=== PATIENT | male | born 1940 | race Caucasian/White ===

== ENCOUNTER 2020-09-03 08:33 | Outpatient (REF) | payer MEDICARE, SELFPAY ==
[2020-09-03 10:23] LABS: MANUAL DIFF FLAG NO
[2020-09-03 10:28] LABS: Basophils Percent Auto 0.7 % (0-2); Eosinophils Absolute Auto 0.1 X10*3/uL (0.0-0.4); Eosinophils Percent Auto 3.3 % (0-4); Hematocrit 43.3 % (42-52); Hemoglobin 14.2 g/dl (14.0-18.0); Imm Gran Abs Auto 0.01 X10*3/uL (0.00-0.03); Imm Gran Pct Auto 0.2 % (0.0-0.4); Lymphocytes Absolute Auto 1.1 X10*3/uL (1.2-4.9); Lymphocytes Percent Auto 24.8 % (20-40); Mean Corpuscular HGB Conc 32.8 g/dl (31.0-36.0); Mean Corpuscular Hemoglobin 31.2 pg (27.0-33.0); Mean Corpuscular Volume 95.2 fL (80-98); Mean Platelet Volume 12.6 fL (9.4-12.4); Monocytes Absolute Auto 0.5 X10*3/uL (0.1-1.2); Neutrophils Absolute Auto 2.6 X10*3/uL (2.0-8.3); Platelet Count 115 X10*3/uL (160-400); Red Blood Count 4.55 X10*6/uL (4.60-5.80); Red Cell Distribution Width 13.2 % (11.0-16.0); White Blood Count 4.3 X10*3/uL (4.8-10.8)
[2020-09-03 10:58] LABS: Alanine Aminotransferase 14 U/L (0-40); Albumin Level 4.3 g/dL (3.5-5.0); Alkaline Phosphatase 69 U/L (39-117); Anion Gap 12 (12-20); Aspartate Amino Transferase 17 U/L (5-37); Bilirubin Total 1.1 mg/dL (0.0-1.0); Blood Urea Nitrogen 21 mg/dL (9-16); Calcium 9.3 mg/dL (8.4-10.2); Carbon Dioxide 27 mmol/L (22-29); Chloride 107 mmol/L (96-108); Cholesterol 162 mg/dL; Estimated Glomerular Filt Rate 48; Glucose Fasting 96 mg/dL (60-99); HDL Cholesterol 50 mg/dL; LDL Cholesterol Calculated 99 mg/dl; Potassium 4.3 mmol/L (3.3-5.1); Sodium 142 mmol/L (135-145); Total Protein 6.7 g/dL (6.5-8.0); Triglycerides 67 mg/dL
[2020-09-03 11:06] LABS: Prostate Specific Antigen 1.88 ng/mL (<0.05-4.0)
== END 2020-09-03 08:34 | disposition home or self-care (01) ==
LOC: HO.10HDL 08:33
PROVIDERS: Visit Provider Internal Medicine
DX: N40.0 Benign prostatic hyperplasia without lower urinary tract symptoms (principal); I10 Essential (primary) hypertension; E78.00 Pure hypercholesterolemia, unspecified; Z12.5 Encounter for screening for malignant neoplasm of prostate
CPT/HCPCS: 36415; 80053; 80061; 84153; 85025

== ENCOUNTER 2022-03-08 07:56 | Outpatient (REF) | payer MEDICARE, SELFPAY ==
[2022-03-08 10:37] LABS: MANUAL DIFF FLAG NO
[2022-03-08 10:46] LABS: Basophils Percent Auto 0.9 % (0-2); Eosinophils Absolute Auto 0.1 X10*3/uL (0.0-0.4); Eosinophils Percent Auto 2.6 % (0-4); Hematocrit 40.2 % (42.0-52.0); Hemoglobin 13.1 g/dl (14.0-18.0); Imm Gran Abs Auto 0.03 X10*3/uL (0.00-0.03); Imm Gran Pct Auto 0.7 % (0.0-0.4); Lymphocytes Absolute Auto 0.9 X10*3/uL (1.2-4.9); Lymphocytes Percent Auto 19.6 % (20-40); Mean Corpuscular HGB Conc 32.6 g/dl (31.0-36.0); Mean Corpuscular Hemoglobin 31.5 pg (27.0-33.0); Mean Corpuscular Volume 96.6 fL (80.0-98.0); Mean Platelet Volume 12.2 fL (9.4-12.4); Monocytes Absolute Auto 0.5 X10*3/uL (0.1-1.2); Monocytes Percent Auto 11.8 % (2-11); Neutrophils Percent Auto 64.4 % (45-73); Platelet Count 111 X10*3/uL (160-400); Red Blood Count 4.16 X10*6/uL (4.60-5.80); White Blood Count 4.6 X10*3/uL (4.8-10.8)
[2022-03-08 11:22] LABS: Alanine Aminotransferase 14 U/L (0-40); Albumin Level 3.9 g/dL (3.5-5.0); Alkaline Phosphatase 66 U/L (39-117); Anion Gap 13 (12-20); Aspartate Amino Transferase 16 U/L (5-37); Bilirubin Total 0.7 mg/dL (0.0-1.0); Blood Urea Nitrogen 18 mg/dL (9-16); Calcium 9.3 mg/dL (8.4-10.2); Carbon Dioxide 27 mmol/L (22-29); Chloride 105 mmol/L (96-108); Cholesterol 158 mg/dL; Estimated Glomerular Filt Rate 51; Glucose Fasting 102 mg/dL (60-99); HDL Cholesterol 52 mg/dL; LDL Cholesterol Calculated 90 mg/dl; Sodium 141 mmol/L (135-145); Total Protein 6.2 g/dL (6.5-8.0); Triglycerides 81 mg/dL
[2022-03-08 11:45] LABS: Prostate Specific Antigen Scr 1.59 ng/mL (<0.05-4.0)
== END 2022-03-08 07:57 | disposition home or self-care (01) ==
LOC: HO.10HDL 07:56
PROVIDERS: Visit Provider Internal Medicine
DX: Z12.5 Encounter for screening for malignant neoplasm of prostate (principal); I10 Essential (primary) hypertension; N40.0 Benign prostatic hyperplasia without lower urinary tract symptoms; E78.00 Pure hypercholesterolemia, unspecified; D69.6 Thrombocytopenia, unspecified
CPT/HCPCS: 36415; 80053; 80061; 84153; 85025

== ENCOUNTER 2022-08-06 14:44 | Outpatient (REF) | payer MEDICARE, SELFPAY ==
--- NOTE | ~2022-08-06 | XR_ITS ---
EXAMINATION: XR FOOT, LEFT CLINICAL INFORMATION: Pain COMPARISON: None available. TECHNIQUE: 3 views of the left foot. FINDINGS: Degenerative changes most noted in the first MTP joint. There is no acute fracture or dislocation. XR/XR foot LT 2V IMPRESSION: Degenerative changes. No acute fracture or dislocation left foot.
== END 2022-08-06 14:45 | disposition home or self-care (01) ==
LOC: HO.HMGCX 14:44
PROVIDERS: PCP Internal Medicine; Visit Provider Physician Assistant
DX: M79.672 Pain in left foot (principal)
CPT/HCPCS: 73620

== ENCOUNTER 2023-02-24 07:44 | Outpatient (REF) | payer MEDICARE, SELFPAY ==
[2023-02-24 11:22] LABS: MANUAL DIFF FLAG NO
[2023-02-24 11:29] LABS: Basophils Percent Auto 0.9 % (0-2); Eosinophils Absolute Auto 0.2 X10*3/uL (0.0-0.4); Eosinophils Percent Auto 4.7 % (0-4); Hematocrit 42.5 % (42.0-52.0); Hemoglobin 13.9 g/dl (14.0-18.0); Imm Gran Abs Auto 0.02 X10*3/uL (0.00-0.03); Imm Gran Pct Auto 0.4 % (0.0-0.4); Lymphocytes Absolute Auto 1.1 X10*3/uL (1.2-4.9); Lymphocytes Percent Auto 23.8 % (20-40); Mean Corpuscular HGB Conc 32.7 g/dl (31.0-36.0); Mean Corpuscular Hemoglobin 31.6 pg (27.0-33.0); Mean Corpuscular Volume 96.6 fL (80.0-98.0); Mean Platelet Volume 12.7 fL (9.4-12.4); Monocytes Absolute Auto 0.6 X10*3/uL (0.1-1.2); Monocytes Percent Auto 12.6 % (2-11); Neutrophils Absolute Auto 2.7 x10*3/uL (2.0-8.3); Neutrophils Percent Auto 57.6 % (45-73); Platelet Count 112 X10*3/uL (160-400); Red Cell Distribution Width 13.2 % (11.0-16.0); White Blood Count 4.7 X10*3/uL (4.8-10.8)
[2023-02-24 11:40] LABS: Alanine Aminotransferase 12 U/L (0-40); Albumin Level 4.2 g/dL (3.5-5.0); Alkaline Phosphatase 81 U/L (39-117); Anion Gap 11 (12-20); Aspartate Amino Transferase 20 U/L (5-37); Bilirubin Total 0.4 mg/dL (0.0-1.0); Blood Urea Nitrogen 27 mg/dL (9-16); Calcium 9.3 mg/dL (8.4-10.2); Carbon Dioxide 26 mmol/L (22-29); Chloride 109 mmol/L (96-108); Cholesterol 160 mg/dL (<200); Estimated Glomerular Filt Rate 55; Glucose Fasting 107 mg/dL (60-99); HDL Cholesterol 49 mg/dL (>40); Iron 62 mcg/dL (45-160); LDL Cholesterol Calculated 95 mg/dL (<100); Percent Iron Saturation 27 % (15-50); Sodium 142 mmol/L (135-145); Total Iron Binding Capacity 233 mcg/dL (228-428); Total Protein 7.1 g/dL (6.5-8.0); Triglycerides 81 mg/dL (<150); Unsaturated Iron Binding 171 ug/dL
[2023-02-24 12:11] LABS: Prostate Specific Antigen 1.82 ng/mL (<0.05-4.0)
== END 2023-02-24 07:45 | disposition home or self-care (01) ==
LOC: HO.HMGCLDS 07:44
PROVIDERS: PCP Internal Medicine; Visit Provider Internal Medicine
DX: Z12.5 Encounter for screening for malignant neoplasm of prostate (principal); I10 Essential (primary) hypertension; E78.00 Pure hypercholesterolemia, unspecified; N40.0 Benign prostatic hyperplasia without lower urinary tract symptoms; K21.9 Gastro-esophageal reflux disease without esophagitis; D69.6 Thrombocytopenia, unspecified
CPT/HCPCS: 36415; 80053; 80061; 83540; 84153; 85025

== ENCOUNTER 2023-08-02 11:09 | Outpatient (REF) | payer MEDICARE, SELFPAY ==
[2023-08-02 13:26] LABS: MANUAL DIFF FLAG NO
[2023-08-02 13:57] LABS: Basophils Percent Auto 0.5 % (0-2); Eosinophils Absolute Auto 0.1 X10*3/uL (0.0-0.4); Eosinophils Percent Auto 1.5 % (0-4); Hematocrit 41.4 % (42.0-52.0); Hemoglobin 13.8 g/dl (14.0-18.0); Imm Gran Abs Auto 0.03 X10*3/uL (0.00-0.03); Imm Gran Pct Auto 0.5 % (0.0-0.4); Lymphocytes Percent Auto 18.6 % (20-40); Mean Corpuscular HGB Conc 33.3 g/dl (31.0-36.0); Mean Corpuscular Hemoglobin 31.4 pg (27.0-33.0); Mean Corpuscular Volume 94.1 fL (80.0-98.0); Mean Platelet Volume 12.6 fL (9.4-12.4); Monocytes Absolute Auto 0.4 X10*3/uL (0.1-1.2); Neutrophils Absolute Auto 3.9 x10*3/uL (2.0-8.3); Neutrophils Percent Auto 70.9 % (45-73); Platelet Count 110 X10*3/uL (160-400); Red Cell Distribution Width 13.1 % (11.0-16.0); White Blood Count 5.5 X10*3/uL (4.8-10.8)
[2023-08-02 14:30] LABS: Anion Gap 13 (12-20); Blood Urea Nitrogen 23 mg/dL (9-16); Carbon Dioxide 25 mmol/L (22-29); Chloride 109 mmol/L (96-108); Estimated Glomerular Filt Rate 49; Glucose Random 105 mg/dL (60-115); Potassium 4.4 mmol/L (3.3-5.1); Sodium 143 mmol/L (135-145)
== END 2023-08-02 11:10 | disposition home or self-care (01) ==
LOC: HO.10HDL 11:09
PROVIDERS: Visit Provider Internal Medicine
DX: D64.9 Anemia, unspecified (principal); I12.9 Hypertensive chronic kidney disease with stage 1 through stage 4 chronic kidney disease, or unspecified chronic kidney disease; N18.9 Chronic kidney disease, unspecified; N40.0 Benign prostatic hyperplasia without lower urinary tract symptoms
CPT/HCPCS: 36415; 80048; 85025

== ENCOUNTER 2024-03-11 07:09 | Outpatient (REF) | payer MEDICARE, SELFPAY ==
[2024-03-11 10:02] LABS: MANUAL DIFF FLAG NO
[2024-03-11 10:05] LABS: Appearance Urine Clear; Color Urine Yellow; Glucose Urine UA Negative (Negative); Leukocyte Esterase Urine Negative (Negative); Nitrite Urine Negative (Negative); PH 5.5 (5.0-9.0); Specific Gravity - Urine 1.015 (1.005-1.025); Urine Blood Negative (Negative); Urine Ketones Negative (Negative); Urine Protein Trace mg/dL (Neg-Trace)
[2024-03-11 10:27] LABS: Basophils Percent Auto 0.7 % (0-2); Eosinophils Absolute Auto 0.2 X10*3/uL (0.0-0.4); Eosinophils Percent Auto 4.7 % (0-4); Hematocrit 43.3 % (42.0-52.0); Hemoglobin 14.5 g/dl (14.0-18.0); Imm Gran Abs Auto 0.02 X10*3/uL (0.00-0.03); Imm Gran Pct Auto 0.4 % (0.0-0.4); Lymphocytes Absolute Auto 1.1 X10*3/uL (1.2-4.9); Lymphocytes Percent Auto 24.4 % (20-40); Mean Corpuscular HGB Conc 33.5 g/dl (31.0-36.0); Mean Corpuscular Hemoglobin 31.9 pg (27.0-33.0); Mean Corpuscular Volume 95.4 fL (80.0-98.0); Mean Platelet Volume 12.7 fL (9.4-12.4); Monocytes Absolute Auto 0.5 X10*3/uL (0.1-1.2); Monocytes Percent Auto 11.2 % (2-11); Neutrophils Absolute Auto 2.6 x10*3/uL (2.0-8.3); Neutrophils Percent Auto 58.6 % (45-73); Platelet Count 115 X10*3/uL (160-400); Red Blood Count 4.54 X10*6/uL (4.60-5.80); Red Cell Distribution Width 13.2 % (11.0-16.0); White Blood Count 4.5 X10*3/uL (4.8-10.8)
[2024-03-11 10:49] LABS: Prostate Specific Antigen Scr 1.63 ng/mL (<0.05-4.0)
[2024-03-11 10:52] LABS: Alanine Aminotransferase 19 U/L (0-40); Alkaline Phosphatase 78 U/L (39-117); Anion Gap 10 (12-20); Aspartate Amino Transferase 29 U/L (5-37); Bilirubin Total 0.7 mg/dL (0.0-1.0); Blood Urea Nitrogen 21 mg/dL (9-16); Calcium 9.2 mg/dL (8.4-10.2); Carbon Dioxide 26 mmol/L (22-29); Chloride 110 mmol/L (96-108); Cholesterol 164 mg/dL (<200); Estimated Glomerular Filt Rate 50; Glucose Fasting 102 mg/dL (60-99); HDL Cholesterol 49 mg/dL (>40); LDL Cholesterol Calculated 94 mg/dL (<100); Sodium 142 mmol/L (135-145); Total Protein 6.7 g/dL (6.5-8.0); Triglycerides 107 mg/dL (<150)
== END 2024-03-11 07:10 | disposition home or self-care (01) ==
LOC: HO.HMGCLDS 07:09
PROVIDERS: PCP Internal Medicine; Visit Provider Internal Medicine
DX: E78.00 Pure hypercholesterolemia, unspecified (principal); Z12.5 Encounter for screening for malignant neoplasm of prostate; N40.0 Benign prostatic hyperplasia without lower urinary tract symptoms
CPT/HCPCS: 36415; 80053; 80061; 81003; 84153; 85025

== ENCOUNTER 2024-05-16 11:17 | Outpatient (AMB) | payer MEDICARE, SELFPAY ==
--- NOTE | 2024-05-16 11:22 | AM.OFFWIN_ITS ---
Intake Vital Signs 05/16/24 11:30 Weight 173 lb 8 oz BP 140/92 H Blood Pressure Location Lt brachial Position Sitting Pulse 79 Pulse Source Pulse Oximeter Pulse Oximetry (%) 98 Oxygen Delivery Method Room Air Intake Visit Reasons: EP-rt foot big toe pain Intake Note: Patient here for great toe pain of right foot that started Monday. Patient Tobacco Use Status: Never used Tobacco Allergies dicyclomine Allergy (Unknown, Verified 05/16/24 11:31) Hives doxycycline [DOXYCYCLINE] Allergy (Unknown, Verified 05/16/24 11:31) HIVES SEASONAL ALLERGIES Allergy (Unknown, Uncoded 05/16/24 11:31) RUNNY NOSE/SNEEZING Do you need a note to return to daycare/school/sports/work: No HPI HPI Comments History of Present Illness Details History of Present Illness - The patient is an 83-year-old male pre senting with pain and swelling in the right great toe x 4 days. - Symptoms began after exposure to cold while shoveling, resulting in mild discomfort initially. - The condition became more pronounced t he following morning, exhibiting soreness and swelling concentrated around the right great toe. - He utilized ibuprofen, achieving tempo rary symptom relief, but the issues recurred with increased swelling evident by Monday. - The patient's spouse suspects gout; alex flores, previous workups showed arthritis on the other foot, and the condition was not explicitly diagnosed as gout. - No prior kidney disease or previous ur ic acid evaluations are reported. - PT does report drinking some beer over the weekend which he normally does not do. - Notably, symptoms of tenderness and re dness with apparent swelling were consistent with gout, despite a lack of a formal prior diagnosis for the same condition. Physical Exam General: Cooperative, healthy appearing, comfortable, no acute distress and well developed Orientation: Patient oriented x3 Limitations: No limitations Head: Normal to inspection Ears: Hearing grossly normal bilaterally Nose: Normal external nose present Face and sinus: Normal facial exam Eyes: Appearance normal, both eyes and all related structures Neck: Normal visual inspection and Yes full ROM Respiratory: Normal respiratory effort and able to speak in complete sentences. Skin: No rashes or lesions noted Neuro: Patient oriented x3 Extremities: Right 1st MTP, edema, erythema and TTP PFSH Social History Patient Tobacco Use Status: Never used Tobacco Review of Systems Const All systems reviewed & are unremarkable except as noted in HPI and below Physical Exam Vital Signs: Last Vital Signs Pulse 79 05/16/24 11:30 BP 140/92 H 05/16/24 11:30 Pulse Ox 98 05/16/24 11:30 Oxygen Delivery Method Room Air 05/16/24 11:30 Assessment & Plan Assessment & Plan (1) Gout involving toe of right foot: Code(s): M10.9 - Gout, unspecified Qualifiers: Gout etiology: unspecified cause Chronicity: acute Qualified Code(s): M10.9 - Gout, unspecified Plan: The patient is suspected to have gout, following a typical presentation of symptoms: redness, tenderness, and swelling localized to the toe. A prescribed course of oral steroids, consisting of 40 mg dosages for five days, aims to reduce inflammation and alleviate discomfort. Discussed potential side effects include increased appetite, mood alterations, and possible insomnia, which should be monitored by the patient and family. The current medication regimen is deemed safe to continue with the introduction of steroids. Dietary review indicates potential aggravators, such as beer consumption, although frequency was minimal. Further consultation with their primary care physician, Dr. Johnson, is advised to assess symptom progression and to explore additional diagnostic or therapeutic measures if required. Patient was informed and verbally consented to the use of an ambient scribe for clinic note documentation during this visit. Medications: New prednisone 40 mg (2 x 20 mg) PO DAILY 10 tabs 0RF Coding Level of Care Code New Pt Level 3 (10220) Diagnoses Acute gout involving toe of right foot, unspecified cause M10.9 Gout etiology: unspecified cause Chronicity: acute
[2024-05-16 11:30] VITALS: BP 140/92; PULSE 79; O2SAT 98
== END 2024-05-16 12:24 | disposition home or self-care (01) ==
PROVIDERS: PCP Internal Medicine; Visit Provider Physician Assistant
DX: M10.9 Gout, unspecified (principal)

== ENCOUNTER → 2024-05-16 11:17 | Outpatient (BNVA) | payer MEDICARE, SELFPAY | PROVIDERS: PCP Internal Medicine; Visit Provider Physician Assistant | DX: M10.9 Gout, unspecified (principal) | CPT/HCPCS: 99202 ==

== ENCOUNTER 2024-05-28 09:43 | Outpatient (REF) | payer MEDICARE, SELFPAY ==
[2024-05-28 13:52] LABS: Anion Gap 14 (12-20); Blood Urea Nitrogen 35 mg/dL (9-16); Calcium 9.3 mg/dL (8.4-10.2); Carbon Dioxide 22 mmol/L (22-29); Chloride 109 mmol/L (96-108); Estimated Glomerular Filt Rate 53; Glucose Random 107 mg/dL (60-115); Potassium 3.8 mmol/L (3.3-5.1); Sodium 141 mmol/L (135-145); Uric Acid 6.7 mg/dL (3.4-7.0)
== END 2024-05-28 09:44 | disposition home or self-care (01) ==
LOC: HO.HMGCLDS 09:43
PROVIDERS: PCP Internal Medicine; Visit Provider Internal Medicine
DX: M10.9 Gout, unspecified (principal); I10 Essential (primary) hypertension
CPT/HCPCS: 36415; 80048; 84550

== ENCOUNTER 2024-08-07 13:26 | Outpatient (AMB) | payer MEDICARE, SELFPAY ==
--- NOTE | 2024-08-07 13:27 | A.OFFPC_ITS ---
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 Accompanied by: Self / Same As Patient Allergies dicyclomine Allergy (Unknown, Verified 08/07/24 13:28) Hives doxycycline [DOXYCYCLINE] Allergy (Unknown, Verified 08/07/24 13:28) HIVES SEASONAL ALLERGIES Allergy (Unknown, Uncoded 08/07/24 13:28) RUNNY NOSE/SNEEZING Tobacco use date assessed: 08/07/24 Fall risk assessment: No Falls in past year Last assessed Fall Risk: 08/07/24 Dental Screening Dental Screen Date: 08/07/24 Did you have a dental visit in the last 12 months?: Yes Did you have a dental problem in the last 6 months where you did not have access to dental care?: No PFSH Medical History (Updated 08/07/24 @ 14:18 by Michael Humphries MD) Hyperlipidemia Essential hypertension Family History (Updated 08/07/24 @ 13:56 by Marisol Claire CMA) Mother No problems noted. Father No problems noted. Social History Housing: House Patient Tobacco Use Status: Never used Tobacco e-Cigarette/Vaping Use: Never Used service: No Current occupational status: retired Cognitive needs: No Hearing needs: No Vision needs: No Questionnaire PHQ-9 Over the last 2 weeks, how often have you been bothered by any of the following problems? 1. Little interest or pleasure in doing things: not at all 2. Feeling down, depressed, or hopeless: not at all 3. Trouble falling or staying asleep, or sleeping too much: not at all 4. Feeling tired or having little energy: not at all 5. Poor appetite or overeating: not at all 6. Feeling bad about yourself - or that you are a failure or have let yourself or your family down: not at all 7. Trouble concentrating on things, such as reading the newspaper or watching television: not at all 8. Moving or speaking so slowly that other people could have noticed. Or the opposite - being so fidgety or restless that you have been moving around a lot more than usual: not at all 9. Thoughts that you would be better off or of hurting yourself in some way: not at all Total score: 0 Source: Developed by Drs. Forrest Garcia, Nakia Saleh, Abner Ledbetter and colleagues, with an educational miladis from [employer]. Thrive Questionnaire Date Thrive assessed: 08/07/24 I am a: Patient Within the past 12 months, did the food you bought not last and you didn't have the money to get more?: Never true Within the past 12 months, did you worry whether your food would run out before you got money to buy more?: Never true Do you have trouble paying for medicines?: No Do you have trouble getting transportation to medical appointments?: No Do you have trouble paying your heating and electricity bill?: No Do you have trouble taking care of your child, family member or friend?: No Do you have trouble with day-to-day activities such as bathing, preparing meals, shopping, managing finances, etc.?: No Are you currently unemployed and looking for a job?: No Are you interested in more education?: No THRIVE Score: 0 AUDIT C Alcohol Use Questionnaire (AUDIT-C) 1. How often do you have a drink containing alcohol?: Monthly or less 2. How many drinks containing alcohol do you have on a typical day when you are drinking?: 1 or 2 3. How often do you have six or more drinks on one occasion?: Less than monthly Total Score: 2 JENNIFER-7 AMB Questionnaire JENNIFER-7 Date JENNIFER - 7 assessed: 08/07/24 Feeling nervous, anxious, or on edge: 0 = Not at all Not being able to stop or control worryin = Not at all Worrying too much about different things: 0 = Not at all Trouble relaxin = Not at all Being so restless that it is hard to sit still: 0 = Not at all Becoming easily annoyed or irritable: 0 = Not at all Feeling afraid as if something awful might happen: 0 = Not at all Total JENNIFER-7 score (0-4 normal; 5-9 mild; 10-14 moderate; 15-21 severe): 0 Source: Developed by Drs. Forrest Garcia, Nakia Saleh, Abner Ledbetter and colleagues, with an educational miladis from [employer]. Physical exam (Primary Care) Vital Signs: Last Vital Signs Temp 97.7 F 08/07/24 13:47 Pulse 75 08/07/24 13:47 BP 136/80 08/07/24 13:47 Pulse Ox 96 08/07/24 13:47 Oxygen Delivery Method Room Air 08/07/24 13:47 BMI result Body Mass Index 28.5 Tobacco/Smoking Status: Tobacco use Status Tobacco use date assessed 08/07/24 08/07/24 13:29 Patient Tobacco Use Status Never used Tobacco 08/07/24 13:29 e-Cigarette/Vaping Use Never Used 08/07/24 13:29 PHQ-9: PHQ-9 Score PHQ-9: Total score 0 08/07/24 13:57 Thrive Assessment: Date of Thrive Assessment Date Thrive assessed 08/07/24 08/07/24 13:29 Coding Level of Care Code Est Pt Level 4 (16359) Complex EM visit Add On G2211 Diagnoses Acute gout involving toe of right foot, unspecified cause M10.9 Chronicity: acute Gout etiology: unspecified cause Essential hypertension I10 Hyperlipidemia E78.5 Assessment & Plan Assessment & Plan (1) Gout involving toe of right foot: Code(s): M10.9 - Gout, unspecified Category: Medical Qualifiers: Chronicity: acute Gout etiology: unspecified cause Qualified Code(s): M10.9 - Gout, unspecified Plan: BW done from the past reviewed. Does not need any meds right now/ (2) Essential hypertension: Code(s): I10 - Essential (primary) hypertension Category: Medical Plan: BP is stable. Continue current medications (3) Hyperlipidemia: Code(s): E78.5 - Hyperlipidemia, unspecified Category: Medical Plan: BW is stable. Continue current meds. Plan History of Present Illness The patient is an 83-year-old male presenting for a routine wellness examination and to address concerns related to ear wax build-up and management of a recent toe swelling episode. The patient has a history of cerumen impaction and uses Ginette to manage symptoms such as ear fluid retention and popping sensations. He describes a previous toe swelling episode after cold exposure, which partially responded to steroid treatment but was followed by normal uric acid levels, suggesting arthritis rather than gout. 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 Retired at 64 but briefly returned for three years. - Activity Level: Engaged in playing golf post-shelter but experiencing increasing back pain. - Living Situation: Resides in a large house, wishes to retain it. Participates in outdoor activities and yard work. - Travel and Lifestyle: Drives frequently to medical centers and has family connections in neighboring areas. Review of Systems - ENT: Reports ear wax build-up, ear popping, and fluid sensation. Denies other ENT symptoms. - Musculoskeletal: Reports past toe swelling, typically associated with arthritis. - Allergy/Immunology: Reports use of Ginette for allergy management. - General: Denies any ongoing acute health issues, generally feels well. Physical Exam General: Cooperative and healthy appearing Nutritional Appearance: Well nourished Orientation/consciousness: Patient oriented x3 Limitations: No limitations Head: Normal to inspection General: Appearance normal, both eyes and all related structures Neck: Normal visual inspection Chest: Normal palpation of entire chest wall Respiratory: N ormal respiratory effort Neurology: Patient oriented x3, reports occasional arthritis in fingers and toes, recent episode of toe swelling possibly related to gout, but uric acid le vels were normal. Results - Labs: Previous uric acid level testing was normal. - Tests: Previous examination indicated possible gout, but was inconclusive based on normal uric acid levels. Plan During the wellness examination, we addressed cerumen impaction and seasonal allergies, reinforced ear hygiene, and continued Ginette to manage symptoms effectively. The prior incident of suspected gout, likely arthritis with cold exposure, showed normal uric acid, suggesting routine NSAIDs for symptom relief. Fasting blood work was advised to monitor health status. Patient was informed and verbally consented to the use of an ambient scribe for clinic note documentation during this visit. Discussion Notes I discussed the management of cerumen impaction with emphasis on continuous use of Ginette for seasonal allergies. The previous swelling episode, now suspected as arthritis, had normal uric acid levels, making gout unlikely; thus, symptomatic treatment is advised. Recommendations for fasting blood work were made to monitor overall health, and regular follow-up was established for six months. Patient Instructions - Continue Ginette for allergy management as needed. - Maintain ear hygiene to prevent cerumen build-up. - Adhere to fasting blood work instructions and complete tests at your convenience. - Use NSAIDs for arthritis or toe swelling if recommended and as needed. - Follow-up appointment scheduled in six months or earlier if symptoms worsen. Orders: Orders Complete Blood Count no Diff Today M10.9 - Gout, unspecified Basic Metabolic Panel Today M10.9 - Gout, unspecified Thyroid Stimulating Hormone Today M10.9 - Gout, unspecified Lipid Panel Today M10.9 - Gout, unspecified Liver Panel Today M10.9 - Gout, unspecified UA and rflx microscopic Today M10.9 - Gout, unspecified
[2024-08-07 13:47] VITALS: BP 136/80; PULSE 75; TEMP 36.5; O2SAT 96; BMI 28.5
== END 2024-08-07 14:15 | disposition home or self-care (01) ==
LOC: HO.HMCHD 13:26
PROVIDERS: PCP Internal Medicine; Visit Provider Internal Medicine
DX: M10.9 Gout, unspecified (principal); I10 Essential (primary) hypertension; E78.5 Hyperlipidemia, unspecified

== ENCOUNTER → 2024-08-07 13:26 | Outpatient (BNVA) | payer MEDICARE, SELFPAY | PROVIDERS: PCP Internal Medicine; Visit Provider Internal Medicine | DX: M10.9 Gout, unspecified (principal); I10 Essential (primary) hypertension; E78.5 Hyperlipidemia, unspecified | CPT/HCPCS: 96127; 99212 ==

== ENCOUNTER 2024-08-08 06:54 | Outpatient (REF) | payer MEDICARE, SELFPAY ==
[2024-08-08 10:18] LABS: Mean Corpuscular HGB Conc 33.3 g/dl (31.0-36.0); Mean Corpuscular Hemoglobin 31.4 pg (27.0-33.0); Mean Corpuscular Volume 94.2 fL (80.0-98.0); Mean Platelet Volume 12.3 fL (9.4-12.4); Platelet Count 110 X10*3/uL (160-400); Red Blood Count 4.46 X10*6/uL (4.60-5.80); Red Cell Distribution Width 13.6 % (11.0-16.0); White Blood Count 5.3 X10*3/uL (4.8-10.8)
[2024-08-08 10:40] LABS: Anion Gap 13 (12-20)
[2024-08-08 10:45] LABS: Alanine Aminotransferase 23 U/L (0-40); Albumin Level 4.1 g/dL (3.5-5.0); Aspartate Amino Transferase 26 U/L (5-37); Bilirubin Direct 0.2 mg/dL (0.0-0.5); Bilirubin Total 0.6 mg/dL (0.0-1.0); Blood Urea Nitrogen 22 mg/dL (9-16); Calcium 9.2 mg/dL (8.4-10.2); Carbon Dioxide 24 mmol/L (22-29); Chloride 109 mmol/L (96-108); Cholesterol 162 mg/dL (<200); Estimated Glomerular Filt Rate 56; Glucose Random 99 mg/dL (60-115); HDL Cholesterol 51 mg/dL (>40); LDL Cholesterol Calculated 97 mg/dL (<100); Potassium 3.9 mmol/L (3.3-5.1); Sodium 142 mmol/L (135-145); Total Protein 6.5 g/dL (6.5-8.0); Triglycerides 70 mg/dL (<150)
[2024-08-08 10:58] LABS: Alkaline Phosphatase 82 U/L (39-117)
[2024-08-08 11:08] LABS: Thyroid Stimulating Hormone 1.04 uIU/mL (0.32-4.0)
[2024-08-08 11:45] LABS: Appearance Urine Clear; Color Urine Yellow; Glucose Urine UA Negative (Negative); Leukocyte Esterase Urine Negative (Negative); Nitrite Urine Negative (Negative); PH 5.5 (5.0-9.0); Urine Blood Negative (Negative); Urine Ketones Negative (Negative); Urine Protein Trace mg/dL (Neg-Trace)
== END 2024-08-08 06:55 | disposition home or self-care (01) ==
LOC: HO.HMGCLDS 06:54
PROVIDERS: PCP Internal Medicine; Visit Provider Internal Medicine
DX: M10.9 Gout, unspecified (principal)
CPT/HCPCS: 36415; 80048; 80061; 80076; 81003; 84443; 85027

== ENCOUNTER 2024-10-21 14:02 | Outpatient (AMB) | payer MEDICARE, SELFPAY ==
--- NOTE | 2024-10-21 13:39 | MHC.PC.OV ---
Vital Signs 10/21/24 13:40 Height 5 ft 4 in Weight 160 lb BMI 27.5 BP 136/80 Blood Pressure Location Lt brachial Position Sitting Pulse 83 Pulse Source Pulse Oximeter Temp 98.1 F Temp Source Axillary Pulse Oximetry (%) 98 Oxygen Delivery Method Room Air Intake Visit Reasons: Cyst on Backside Coccyx Emergency Medical Services Coordinator Required: No Accompanied by: Self / Same As Patient Allergies dicyclomine Allergy (Unknown, Verified 08/07/24 13:28) Hives doxycycline (DOXYCYCLINE) Allergy (Unknown, Verified 08/07/24 13:28) HIVES SEASONAL ALLERGIES Allergy (Unknown, Uncoded 08/07/24 13:28) RUNNY NOSE/SNEEZING Tobacco use date assessed: 08/07/24 Fall risk assessment: No Falls in past year Last assessed Fall Risk: 10/21/24 Dental Screening Dental Screen Date: 10/21/24 Did you have a dental visit in the last 12 months?: Yes Did you have a dental problem in the last 6 months where you did not have access to dental care?: No HPI Cyst on Backside Coccyx HPI Details Patient reports he has a swelling in his buttock and would like to have it examined. [facility] Medical History Hyperlipidemia Essential hypertension Family History (Updated 10/21/24 @ 14:17 by Marisol Claire MA) Mother No problems noted. Father No problems noted. Social History Housing: House Patient Tobacco Use Status: Never used Tobacco e-Cigarette/Vaping Use: Never Used service: No Current occupational status: retired Cognitive needs: No Hearing needs: No Vision needs: No Questionnaire PHQ-9 Over the last 2 weeks, how often have you been bothered by any of the following problems? 1. Little interest or pleasure in doing things: not at all 2. Feeling down, depressed, or hopeless: not at all 3. Trouble falling or staying asleep, or sleeping too much: not at all 4. Feeling tired or having little energy: not at all 5. Poor appetite or overeating: not at all 6. Feeling bad about yourself - or that you are a failure or have let yourself or your family down: not at all 7. Trouble concentrating on things, such as reading the newspaper or watching television: not at all 8. Moving or speaking so slowly that other people could have noticed. Or the opposite - being so fidgety or restless that you have been moving around a lot more than usual: not at all 9. Thoughts that you would be better off or of hurting yourself in some way: not at all Total score: 0 Source: Developed by Drs. Forrest aGrcia, Nakia Saleh, Abner Ledbetter and colleagues, with an educational miladis from [employer]. Thrive Questionnaire Date Thrive assessed: 10/21/24 I am a: Patient Within the past 12 months, did the food you bought not last and you didn't have the money to get more?: Never true Within the past 12 months, did you worry whether your food would run out before you got money to buy more?: Never true Do you have trouble paying for medicines?: No Do you have trouble getting transportation to medical appointments?: No Do you have trouble paying your heating and electricity bill?: No Do you have trouble taking care of your child, family member or friend?: No Do you have trouble with day-to-day activities such as bathing, preparing meals, shopping, managing finances, etc.?: No Are you currently unemployed and looking for a job?: No Are you interested in more education?: No THRIVE Score: 0 AUDIT C Alcohol Use Questionnaire (AUDIT-C) 1. How often do you have a drink containing alcohol?: Never 3. How often do you have six or more drinks on one occasion?: Never Total Score: 0 JENNIFER-7 AMB Questionnaire JENNIFER-7 Date JENNIFER - 7 assessed: 10/21/24 Feeling nervous, anxious, or on edge: 0 = Not at all Not being able to stop or control worryin = Not at all Worrying too much about different things: 0 = Not at all Trouble relaxin = Not at all Being so restless that it is hard to sit still: 0 = Not at all Becoming easily annoyed or irritable: 0 = Not at all Feeling afraid as if something awful might happen: 0 = Not at all Total JENNIFER-7 score (0-4 normal; 5-9 mild; 10-14 moderate; 15-21 severe): 0 Source: Developed by Drs. Forrest Garcia, Nakia Saleh, Abner Ledbetter and colleagues, with an educational miladis from [employer]. Physical exam (Primary Care) Vital Signs: Last Vital Signs Temp 98.1 F 10/21/24 13:40 Pulse 83 10/21/24 13:40 BP 136/80 10/21/24 13:40 Pulse Ox 98 10/21/24 13:40 Oxygen Delivery Method Room Air 10/21/24 13:40 BMI result Body Mass Index 27.5 Tobacco/Smoking Status: Tobacco use Status Tobacco use date assessed 08/07/24 10/21/24 13:40 Patient Tobacco Use Status Never used Tobacco 10/21/24 13:40 e-Cigarette/Vaping Use Never Used 10/21/24 13:40 PHQ-9: PHQ-9 Score PHQ-9: Total score 0 10/21/24 14:18 Thrive Assessment: Date of Thrive Assessment Date Thrive assessed 10/21/24 10/21/24 14:18 Other: 2 cm firm cyst, mildly tender near the perianal area. No discharge Coding Level of Care Code Est Pt Level 3 (70462) Complex EM visit Add On G2211 Diagnoses Sebaceous cyst L72.3 Assessment & Plan Assessment & Plan (1) Sebaceous cyst: Code(s): L72.3 - Sebaceous cyst Plan: Patient has a painful cyst in the perianal area. General Surgery appt given for excision Orders: Referrals General Surgery Referral L72.3 - Sebaceous cyst
[2024-10-21 13:40] VITALS: BP 136/80; PULSE 83; TEMP 36.7; O2SAT 98; BMI 27.5
== END 2024-10-21 14:46 | disposition home or self-care (01) ==
LOC: HO.HMCHD 14:03
PROVIDERS: PCP Internal Medicine; Visit Provider Internal Medicine
DX: L72.3 Sebaceous cyst (principal)

== ENCOUNTER → 2024-10-21 14:02 | Outpatient (BNVA) | payer MEDICARE, SELFPAY | PROVIDERS: PCP Internal Medicine; Visit Provider Internal Medicine | DX: L72.3 Sebaceous cyst (principal) | CPT/HCPCS: 96127; 99212 ==

== ENCOUNTER 2024-11-04 14:20 | Outpatient (AMB) | payer MEDICARE, SELFPAY ==
--- NOTE | 2024-11-04 14:29 | MHC.OFFVIS ---
Vital Signs 11/04/24 14:33 Height 5 ft 4 in Weight 158 lb BMI 27.1 BP 190/88 H Blood Pressure Location Lt brachial Position Sitting Pulse 77 Intake Visit Reasons: Perianal cyst that requires excision Intake Note: Patient is seen in office for evaluation of a perianal cyst of the buttock. Pt c/o: white head was squeezed by Dr. Johnson 1yr ago but it grew back. Uncomfortable when sitting. Denies oozing, pain. Aircraft Stress Analyst Required: No Accompanied by: Self / Same As Patient Allergies dicyclomine Allergy (Unknown, Verified 11/04/24 14:35) Hives doxycycline (DOXYCYCLINE) Allergy (Unknown, Verified 11/04/24 14:35) HIVES SEASONAL ALLERGIES Allergy (Unknown, Uncoded 11/04/24 14:35) RUNNY NOSE/SNEEZING Medication List - Last Reconciled 11/05/24 by Morgan Sanchez MD cholecalciferol (vitamin D3) 25 mcg PO DAILY fexofenadine (Ginette Allergy) 180 mg PO DAILY finasteride 5 mg PO DAILY lisinopril 10 mg PO BID omeprazole 20 mg PO ONCE simvastatin 10 mg PO DAILY terazosin 2 mg PO BEDTIME HPI Comments Details: 83-year-old male patient presenting with a perianal cyst that has been present for several years gradually increasing in size. This was previously evaluated by Dr. Johnson and he was able to squeeze the lesion and reduce size. The lesion has subsequently increased in size once again. He denies any pain or discharge at this time. He presents today to discuss excision of this perianal cyst. He reports normal bowel habits. [facility] Medical History Hyperlipidemia Essential hypertension Family History Mother No problems noted. Father No problems noted. Social History Housing: House Patient Tobacco Use Status: Never used Tobacco e-Cigarette/Vaping Use: Never Used service: No Current occupational status: retired Cognitive needs: No Hearing needs: No Vision needs: No Review of Systems Const All systems reviewed & are unremarkable except as noted in HPI and below Physical Exam Vital Signs: Last Vital Signs Pulse 77 07/14/25 14:33 BP 190/88 H 11/04/24 14:33 BMI result Body Mass Index 27.1 Const General: no acute distress Nutritional Appearance: well nourished Orientation/consciousness: patient oriented x3 Limitations: no limitations Resp Effort & Inspection: normal respiratory effort, no audible wheezes, no cough and no respiratory distress GI Inspection: Yes normal to inspection Palpation (GI): Soft to palpation, nontender, no guarding and No hepatosplenomegaly present Back/Spine/Pelvis Other: 1.5 cm perianal cyst noted on the left perianal wall, nontender to palpation approximately 2 cm from the anal verge. There is a yellowish discoloration but no fluctuance or erythema. Skin Other: Warm, dry, no rash Neuro General: patient oriented x3 Extrem Other: No peripheral edema Office Procedures Excision Details: Preoperative diagnosis: Perianal cyst Postoperative diagnosis: Same Procedure: Excision of perianal cyst Surgeon: Morgan Sanchez MD Medical Record Coder: WAYNE Carson Anesthesia: Local lidocaine 1% plain Indications for procedure: Recurrent perianal cyst Operative findings: 1.5 cm perianal cyst currently noninfected Specimen: Perianal cyst Estimated blood loss: Less than 2 mL Complications: None Procedure details: Patient was brought to the procedure room and placed in a left lateral decubitus position. After assuring informed consent the skin was prepped with Betadine and draped in a sterile fashion. Local anesthesia was then infiltrated around the cyst. An elliptical incision was then made with a 15 blade and carried down into the subcutaneous tissue. Sharp dissection was used to excise the subcutaneous cyst. This was passed off the table and sent to pathology for further examination. Light pressure was held to maintain hemostasis. Skin was closed using a single 4-0 chromic suture. Sterile dressings were then applied. The patient tolerated the procedure well. He was discharged to home in stable condition. [id number]/arms/legs 1.1-2cm Procedure code (CPT) selection complete Assessment & Plan Assessment & Plan (1) Perianal cyst: Code(s): K62.89 - Other specified diseases of anus and rectum Category: Medical Plan 83-year-old male patient presenting with a perianal cyst which was excised today in the office. He tolerated the procedure well and should return approximately 1 week for wound examination. He should call sooner for any new concerns. Orders: Orders Surgical 11/04/24 K62.89 - Other specified diseases of anus and rectum Coding Level of Care Code New Pt Level 4 (06147) Diagnoses Perianal cyst K62.89 CPT Codes Trunk/Arms/Legs - CPT: 98853-gnisz/arms/legs 1.1-2cm ([id number])
[2024-11-04 14:33] VITALS: BP 190/88; PULSE 77; BMI 27.1
== END 2024-11-04 14:55 | disposition home or self-care (01) ==
LOC: HO.HGS 14:21
PROVIDERS: PCP Internal Medicine; Visit Provider Surgery
DX: K62.89 Other specified diseases of anus and rectum (principal); L72.0 Epidermal cyst
CPT/HCPCS: 11402; 99204

== ENCOUNTER 2024-11-04 15:06 | Outpatient (REF) | payer MEDICARE, SELFPAY | END 2024-11-04 15:07 | disposition home or self-care (01) | LOC: HO.LNP 15:06 | PROVIDERS: Visit Provider Surgery | DX: K62.89 Other specified diseases of anus and rectum (principal); Z79.899 Other long term (current) drug therapy | CPT/HCPCS: 11402; 88304; 99202 ==

== ENCOUNTER 2025-02-12 08:20 | Outpatient (AMB) | payer MEDICARE, SELFPAY ==
--- NOTE | 2025-02-12 07:56 | A.OFFPC_ITS ---
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 Accompanied by: Self / Same As Patient Allergies dicyclomine Allergy (Unknown, Verified 02/12/25 08:34) Hives doxycycline (DOXYCYCLINE) Allergy (Unknown, Verified 02/12/25 08:34) HIVES SEASONAL ALLERGIES Allergy (Unknown, Uncoded 11/04/24 14:35) RUNNY NOSE/SNEEZING Medication List - Last Reconciled 02/12/25 by Sunny Schwartz MD cholecalciferol (vitamin D3) 25 mcg PO DAILY fexofenadine (Ginette Allergy) 180 mg PO DAILY finasteride 5 mg PO DAILY lisinopril 10 mg PO BID 30 days omeprazole 20 mg PO ONCE simvastatin 10 mg PO DAILY 30 days terazosin 2 mg PO BEDTIME Tobacco use date assessed: 02/12/25 Fall risk assessment: No Falls in past year Last assessed Fall Risk: 02/12/25 Dental Screening Dental Screen Date: 02/12/25 Did you have a dental visit in the last 12 months?: Yes Did you have a dental problem in the last 6 months where you did not have access to dental care?: No HPI HPI Comments History of Present Illness Details The patient is an 84-year-old male presenting for an annual physical examination. He denies any specific complaints or concerns at this time. During the conversation, the patient reported no issues with general health, specifically denying nausea, vomiting, chest pain, or shortness of breath. Over the past few years, his chronic kidney disease, diagnosed as stage 3B, has been stable under the management of a kidney specialist. The patient is aware that his kidney function is approximately 60% and has been monitoring his condition regularly without significant changes over time. Hypertension is a concern for the patient, especially during today's visit, where elevated readings were noted. He attributes it to possible anxiety related to seeing a new physician and routine disruptions due to changes in his primary care providers. Historically, his blood pressure typically ranges from 130s to 140s systolic and low 80s diastolic, confirmed by occasional home readings. He recognizes the importance of physical activity and, despite knee discomforts, engages in golf and home workouts to maintain an active lifestyle. Knee pain has intermittently limited his activity levels, but the patient has not sought recent medical interventions for this issue. His dyslipidemia, managed with simvastatin, shows favorable lab results, with overall cholesterol at 162 mg/dL and LDL at 97 mg/dL, and triglycerides around 70 mg/dL in his previous July lab work. The patient's gastrointestinal reflux disease is controlled with omeprazole, which he has successfully adjusted to a single morning dose for several years. His seasonal allergies are managed with fexofenadine as needed. Medical History: - Essential Hypertension - Benign Prostatic Hyperplasia - Dyslipidemia - Gastroesophageal Reflux Disease - Seasonal Allergies - Obstructive Sleep Apnea (using CPAP si nce 1998) - Chronic Kidney Disease, Stage 3B Surgical History: - No surgical history discussed Medications: - Lisinopril 10 mg twice daily for blood pressure - Finasteride 5 mg once daily for prosta te health - Terazosin 2 mg once daily for prostate health - Simvastatin 10 mg daily for cholestero l - Omeprazole 20 mg daily for acid reflux - Fexofenadine (Ginette) as needed for s easonal allergies - Vitamin D supplement (dosage not speci fied) Diagnostic Results: Labs: - LDL cholesterol: 97 mg/dL - Total cholesterol: 162 mg/dL - Triglycerides: 70 mg/dL Social History: - Retired, formerly worked at [employer] for 27 years and [employer] for 12 years - Engages in physical activity primarily through golf - Home exercise regimen using an [employer] antoinette and total gym - Lives in a large house in [place], [place] , considering downsizing due to maintenance concerns - with mentions of household dyn amic changes [facility] Medical History (Updated 02/12/25 @ 08:56 by Sunny Schwartz MD) LONI on CPAP Stage 3b chronic kidney disease (CKD) GERD (gastroesophageal reflux disease) BPH (benign prostatic hyperplasia) Hyperlipidemia Essential hypertension Family History Mother No problems noted. Father No problems noted. Social History Housing: House Patient Tobacco Use Status: Never used Tobacco e-Cigarette/Vaping Use: Never Used service: No Current occupational status: retired Cognitive needs: No Hearing needs: No Vision needs: No Questionnaire PHQ-9 Over the last 2 weeks, how often have you been bothered by any of the following problems? 1. Little interest or pleasure in doing things: not at all 2. Feeling down, depressed, or hopeless: not at all 3. Trouble falling or staying asleep, or sleeping too much: not at all 4. Feeling tired or having little energy: not at all 5. Poor appetite or overeating: not at all 6. Feeling bad about yourself - or that you are a failure or have let yourself or your family down: not at all 7. Trouble concentrating on things, such as reading the newspaper or watching television: not at all 8. Moving or speaking so slowly that other people could have noticed. Or the opposite - being so fidgety or restless that you have been moving around a lot more than usual: not at all 9. Thoughts that you would be better off or of hurting yourself in some way: not at all Total score: 0 Depression Screening Interpretation: Negative Depression Screening Done: Yes 06171 - PHQ-9 Billing: Yes Source: Developed by Drs. Forrest Garcia, Nakia Saleh, Abner Ledbetter and colleagues, with an educational miladis from [employer]. Thrive Questionnaire Date Thrive assessed: 02/12/25 I am a: Patient What is your living situation today?: I have a steady place to live Within the past 12 months, did the food you bought not last and you didn't have the money to get more?: Never true Within the past 12 months, did you worry whether your food would run out before you got money to buy more?: Never true Do you have trouble paying for medicines?: No Do you have trouble getting transportation to medical appointments?: No Do you have trouble paying your heating and electricity bill?: No Do you have trouble taking care of your child, family member or friend?: No Do you have trouble with day-to-day activities such as bathing, preparing meals, shopping, managing finances, etc.?: No Are you currently unemployed and looking for a job?: No Are you interested in more education?: No THRIVE Score: 0 AUDIT C Alcohol Use Questionnaire (AUDIT-C) 1. How often do you have a drink containing alcohol?: Never 3. How often do you have six or more drinks on one occasion?: Never Total Score: 0 Score Reviewed/Action Taken: Yes JENNIFER-7 AMB Questionnaire JENNIFER-7 Date JENNIFER - 7 assessed: 02/12/25 Feeling nervous, anxious, or on edge: 0 = Not at all Not being able to stop or control worryin = Not at all Worrying too much about different things: 0 = Not at all Trouble relaxin = Not at all Being so restless that it is hard to sit still: 0 = Not at all Becoming easily annoyed or irritable: 0 = Not at all Feeling afraid as if something awful might happen: 0 = Not at all Total JENNIFER-7 score (0-4 normal; 5-9 mild; 10-14 moderate; 15-21 severe): 0 Source: Developed by Drs. Forrest Garcia, Nakia Saleh, Abner Ledbetter and colleagues, with an educational miladis from [employer]. JENNIFER-7 Assessment Billing JENNIFER-7 Assessment Tool: JENNIFER-7 Assessment 97438 Review of Systems Narrative - General: Denies significant complaints or concerns - Cardiovascular: Denies chest pain or dyspnea - Respiratory: Denies shortness of breath - Gastrointestinal: Denies nausea, vomiting, or abdominal pain - Neurological: Denies headaches, vision changes - Musculoskeletal: Reports knee pain affecting mobility All systems reviewed & are unremarkable except as reviewed in HPI and above Physical exam (Primary Care) Vital Signs: Last Vital Signs Temp 98.1 F 02/12/25 08:31 Pulse 75 02/12/25 08:31 BP 160/86 H 02/12/25 08:31 Pulse Ox 99 02/12/25 08:31 Oxygen Delivery Method Room Air 02/12/25 08:31 BMI result Body Mass Index 27.1 Tobacco/Smoking Status: Tobacco use Status Tobacco use date assessed 02/12/25 02/12/25 08:36 Patient Tobacco Use Status Never used Tobacco 02/12/25 08:36 e-Cigarette/Vaping Use Never Used 02/12/25 08:36 PHQ-9: PHQ-9 Score PHQ-9: Total score 0 02/12/25 08:41 Depression Screening Interpretation: Negative Thrive Assessment: Date of Thrive Assessment Date Thrive assessed 02/12/25 02/12/25 08:36 Narrative General: Alert and oriented, Well nourished, No acute distress. Eye: Pupils are equal, round and reactive to light, Intact accommodation, Extraocular movements are intact, Normal conjunctiva, Vision unchanged. HENT: Normocephalic, Atraumatic, Tympanic membranes are clear, Normal hearing, Oral mucosa is moist, No pharyngeal erythema, Ear canals patent. Respiratory: Lungs CTA bilaterally, No wheeze, Respirations are non-labored. Cardiovascular: Regular rate, Regular rhythm, S1 auscultated, S2 auscultated, No murmur, Good pulses equal in all extremities, Normal peripheral perfusion, No edema. Blood pressure recorded at 160/90, which is high. Gastrointestinal: Soft, Non-tender, Non-distended, Normal bowel sounds, No organomegaly. Musculoskeletal: Normal range of motion, Normal strength, No tenderness, No swelling, No deformity, Normal gait. Integumentary: Warm, Dry, [place], Intact. Neurologic: Alert, Oriented, Normal sensory, Normal motor function, No focal defects, Cranial Nerves II-XII are grossly intact, Normal deep tendon reflexes. Psychiatric: Cooperative, Appropriate mood & affect, Normal judgment. No depression or anxiety reported. Coding Level of Care Code Est Pt Prev Care >65y(13397) Diagnoses Essential hypertension I10 Other hyperlipidemia E78.49 Hyperlipidemia type: other hyperlipidemia Benign prostatic hyperplasia without lower urinary tract symptoms N40.0 Lower urinary tract symptom presence: symptoms absent Gastroesophageal reflux disease without esophagitis K21.9 Esophagitis presence: without esophagitis Stage 3b chronic kidney disease (CKD) N18.32 LONI on CPAP G47.33; Z99.89 Additional Codes PHQ-9 - 17738 - PHQ-9 Billing: Yes ([id number]) JENNIFER-7 Assessment Billing - JENNIFER-7 Assessment Tool: JENNIFER-7 Assessment 52503 ([id number]) Assessment & Plan Assessment & Plan (1) Essential hypertension: Comment: - Blood pressure was notably elevated at the visit. The potential anxiety- related factor was recognized. - Plan to monitor at home with instructions to record blood pressure twice daily (morning and afternoon) over the next two weeks. - Return for a follow-up to review home readings and evaluate current medication regimen. Code(s): I10 - Essential (primary) hypertension Category: Medical (2) Hyperlipidemia: Comment: - Recent lab results are satisfactory; continue simvastatin. Code(s): E78.5 - Hyperlipidemia, unspecified Category: Medical Qualifiers: Hyperlipidemia type: other hyperlipidemia Qualified Code(s): E78.49 - Other hyperlipidemia (3) BPH (benign prostatic hyperplasia): Comment: - Continue current medications: finasteride and terazosin. Code(s): N40.0 - Benign prostatic hyperplasia without lower urinary tract symptoms Category: Medical Qualifiers: Lower urinary tract symptom presence: symptoms absent Qualified Code(s): N40.0 - Benign prostatic hyperplasia without lower urinary tract symptoms (4) GERD (gastroesophageal reflux disease): Comment: - Continue omeprazole once daily, which is managing symptoms effectively. Code(s): K21.9 - Gastro-esophageal reflux disease without esophagitis Category: Medical Qualifiers: Esophagitis presence: without esophagitis Qualified Code(s): K21.9 - Gastro-esophageal reflux disease without esophagitis (5) Stage 3b chronic kidney disease (CKD): Comment: - Renal function remains stable. Continue routine monitoring. Code(s): N18.32 - Chronic kidney disease, stage 3b Category: Medical (6) LONI on CPAP: Comment: - Continues the use of CPAP which is well-tolerated. Code(s): G47.33 - Obstructive sleep apnea (adult) (pediatric); Z99.89 - Dependence on other enabling machines and devices Category: Medical Plan: Health Maintenance: - Ensure regular check-ups to monitor chronic conditions such as hypertension, cholesterol, kidney disease, and prostate health. - Recommend routine vaccinations including flu and COVID. - Encourage an active lifestyle and stress the importance of maintaining physical activity, despite knee discomfort. Patient was informed and verbally consented to the use of an ambient scribe for clinic note documentation during this visit. Plan During our discussion, the patient's hypertension was addressed, with concern about the elevated reading obtained during the visit. I advised the patient to monitor his blood pressure at home to determine if anxiety from the visit contributed to these readings. The importance of maintaining physical activity and the benefits of exercise, despite knee pain, were emphasized. For cholesterol management, simvastatin will be continued given favorable levels. As there are no current complaints regarding reflux, omeprazole is to be maintained. For kidney monitoring, continued follow-up and labs will ensure the stability of the patient's CKD status. The patient's responsibility to monitor health conditions and return for regular follow-ups was stressed for optimal management. Orders: Orders Hemoglobin A1c Today Z00.00 - Encounter for general adult medical examination without abnormal findings Patient Instructions: - Check your blood pressure at home in the morning and afternoon for two weeks and write down the numbers. - Keep taking all your current medications as instructed. - Stay active with exercises like golf but also consider using Tylenol if your knees hurt. - Visit your pharmacy to get the flu shot, as we don't have it in the office today. - Stay on track with your CPAP machine for sleep apnea as you have been. - Come back in two weeks for a check-up and to discuss your blood pressure recordings.
[2025-02-12 08:31] VITALS: BP 160/86; PULSE 75; TEMP 36.7; O2SAT 99; BMI 27.1
--- OUTSIDE RECORDS SUMMARY | 2025-02-12 08:31 | XMS_ITS | Clinical Summary ---
Author Organization [facility] Address [address] [place], [place] [id number] Phone Care Team Providers Care Member Of [employer] Legislative [employer] Name Role Phone Michael Humphries MD Primary Care Provid er Allergies Active Allergy Reactions Criticality Noted Date Comments Doxycycline Hyclate Hives 09/19/2018 Medications finasteride (PROSCAR) 5 mg tablet Take 1 tablet by mouth daily. Active simvastatin (ZOCOR) 10 MG tablet Take 1 tablet by mouth every evening. Active Medication-Free Text Terazosin HCl 2 MG Tablet, Si Orally Once a day Active lisinopril (PRINIVIL,ZESTR IL) 10 MG tablet Take 1 tablet by mouth daily. Active omeprazole (PRILOSEC) 20 MG capsule Take 1 capsule by mouth daily. Active terazosin (HYTRIN) 2 MG capsule Take 2 mg by mouth nightly at bedtime. Active Social History Tobacco Use Types Packs/Day Years Used Date Smoking Tobacco: Never Smokeless Tobacco: Never Education Answer Date Recorded Are you interested in more education? Not on alisa e 08/19/2022 Are you concerned about learning? Not on file 08/19/2022 No 08/19/2022 No 08/19/2022 Digital Access Answer Date Recorded No 09/17/2022 No 09/17/2022 Reliable internet access at home? Not on file 09/17/2022 Device with a working camera? Not on file Sex and Gender Information Value Date Recorded Sex Assigned at Not on file Legal Sex Male 10:38 PM EDT Gender Identity Not on file Sexual Orientation Not on file Last Filed Vital Signs Vital Sign Reading Time Taken Comments Blood Pressure 182/78 10/24/2016 2:43 AM EDT Pulse 67 10/24/2016 2:43 AM EDT Temperature - - Respiratory Rate - - Oxygen Saturation - - Inhaled Oxygen Concentration - - Weight 73.5 kg (162 lb) 09/19/2018 12:56 PM EDT Height 160 cm (5' 3 ) 09/19/2018 12:56 PM EDT Body Mass Index 28.7 09/19/2018 12:56 PM EDT Plan of Treatment Health Maintenance Due Date Last Done Comments Adult Td,Tdap Booster 1942 CREATININE LEVEL 1942 POTASSIUM LEVEL 1942 DEPRESSION SCREENING 1954 PNEUMOCOCCAL VACCINES (50+ years) (1 of 1 - PCV) 1992 ZOSTER VACCINES (2 of 3) 03/09/2017 01/12/2017 RSV VACCINE (1 - 1-dose 75+ series) 2017 INFLUENZA VACCINE (#1) 2024 , 01/12/2017 COVID-19 VACCINE (3 - 2024-2 6 season) 2024 06/29/2020, 06/08/2020 HEPATITIS A VACCINES Aged Out No long er eligible based on patient's age to complete this topic HIB VACCINES Aged Out No longer eligi ble based on patient's age to complete this topic MENINGOCOCCAL VACCINES (ACWY) Aged Out No longer eligible based on patient's age to complete this topic MENINGOCOCCAL VACCINES (B) Aged Out N o longer eligible based on patient's age to complete this topic Medical Devices Not on file Insurance [employer] [place] [employer] RE[employer] Care Teams Member Of The Legislative [employer] Relationship Specialty Start Date End Date Michael Humphries MD [address] [place] [id number] PCP - General Internal Medicine 10/01/24 Additional Source Comments The information contained in this document represents components of the legal health record. It is not the complete legal health record.[facility]
== END 2025-02-12 08:55 | disposition home or self-care (01) ==
LOC: HO.HMCHD 08:20
PROVIDERS: PCP Internal Medicine; Visit Provider Student in an Organized Health Care Education/Training Program
DX: Z00.00 Encounter for general adult medical examination without abnormal findings (principal); I12.9 Hypertensive chronic kidney disease with stage 1 through stage 4 chronic kidney disease, or unspecified chronic kidney disease; N18.32 Chronic kidney disease, stage 3b; E78.49 Other hyperlipidemia; N40.0 Benign prostatic hyperplasia without lower urinary tract symptoms; K21.9 Gastro-esophageal reflux disease without esophagitis; G47.33 Obstructive sleep apnea (adult) (pediatric); Z99.89 Dependence on other enabling machines and devices

== ENCOUNTER → 2025-02-12 08:20 | Outpatient (BNVA) | payer MEDICARE, SELFPAY | PROVIDERS: PCP Internal Medicine; Visit Provider Student in an Organized Health Care Education/Training Program | DX: Z00.00 Encounter for general adult medical examination without abnormal findings (principal); I12.9 Hypertensive chronic kidney disease with stage 1 through stage 4 chronic kidney disease, or unspecified chronic kidney disease; N18.32 Chronic kidney disease, stage 3b; E78.49 Other hyperlipidemia; N40.0 Benign prostatic hyperplasia without lower urinary tract symptoms; K21.9 Gastro-esophageal reflux disease without esophagitis; G47.33 Obstructive sleep apnea (adult) (pediatric); Z79.899 Other long term (current) drug therapy; Z99.89 Dependence on other enabling machines and devices; Z13.31 Encounter for screening for depression; Z13.39 Encounter for screening examination for other mental health and behavioral disorders | CPT/HCPCS: 96127; 99397 ==

== ENCOUNTER 2025-02-12 08:57 | Outpatient (REF) | payer MEDICARE, SELFPAY ==
[2025-02-12 11:42] LABS: Hemoglobin A1C 131.7998 umol/L; Total Hemoglobin (HGBA1C) 3619.7403 umol/L
== END 2025-02-12 08:58 | disposition home or self-care (01) ==
LOC: HO.10HDL 08:57
PROVIDERS: Visit Provider Student in an Organized Health Care Education/Training Program
DX: Z00.00 Encounter for general adult medical examination without abnormal findings (principal); Z13.1 Encounter for screening for diabetes mellitus
CPT/HCPCS: 36415; 83036

== ENCOUNTER 2025-02-26 10:01 | Outpatient (AMB) | payer MEDICARE, SELFPAY ==
[2025-02-26 09:59] VITALS: BP 170/80; PULSE 71; RESP 16; TEMP 36.2; O2SAT 98; BMI 26.7
--- NOTE | 2025-02-26 09:59 | A.OFFPC_ITS ---
Vital Signs 02/26/25 09:59 Height 5 ft 4 in Weight 155 lb 8 oz BMI 26.7 BP 170/80 H Blood Pressure Location Lt brachial Position Sitting Respiration 16 Pulse 71 Pulse Source Pulse Oximeter Temp 97.1 F Temp Source Temporal Artery Scan Pulse Oximetry (%) 98 Oxygen Delivery Method Room Air Intake Visit Reasons: 2 Week F/U Bld Pressure Admitting Counselor Required: No Accompanied by: Self / Same As Patient Allergies dicyclomine Allergy (Unknown, Verified 02/26/25 10:11) Hives doxycycline (DOXYCYCLINE) Allergy (Unknown, Verified 02/26/25 10:11) HIVES SEASONAL ALLERGIES Allergy (Unknown, Uncoded 11/04/24 14:35) RUNNY NOSE/SNEEZING Medication List - Last Reviewed 02/26/25 by America Mijares MA amlodipine 5 mg PO DAILY cholecalciferol (vitamin D3) 25 mcg PO DAILY fexofenadine (Ginette Allergy) 180 mg PO DAILY finasteride 5 mg PO DAILY lisinopril 10 mg PO BID 30 days omeprazole 20 mg PO ONCE simvastatin 10 mg PO DAILY 30 days terazosin 2 mg PO BEDTIME Tobacco use date assessed: 02/26/25 Fall risk assessment: No Falls in past year Last assessed Fall Risk: 02/26/25 Dental Screening Dental Screen Date: 02/26/25 Did you have a dental visit in the last 12 months?: Yes Did you have a dental problem in the last 6 months where you did not have access to dental care?: No Was dental information given to patient?: Patient has dentist HPI HPI Comments History of Present Illness Details The patient is an 84-year-old male presenting for follow-up of uncontrolled hypertension. He reports his blood pressure is all over the place, noting it is highest in the morning with readings in the 170s, 180s, and up to 195, while it improves to the 130s-140s later in the day. The patient reports being a worry wart and has been increasingly worried about his blood pressure for the past two weeks. His current medication regimen for hypertension includes amlodipine 5 mg, which he takes around noontime, and lisinopril, which he takes twice a day. His other chronic medications include vitamin D supplements, Ginette as needed, finasteride and terazosin for his prostate, omeprazole for acid reflux, and simvastatin for high cholesterol. Recent lab work showed an A1c of 5.5 and a cholesterol level of 162. He denies any chest pain, headache, vision changes, or fluttering sensations in his heart. Medical History: - Hypertension - Hyperlipidemia - Benign Prostatic Hyperplasia - Gastroesophageal reflux disease Medications: - Amlodipine 5 mg, taken at noontime for hypertension. - Lisinopril 10 mg, taken twice a day fo r hypertension. - Vitamin D supplements - Ginette, as needed - Finasteride, for prostate - Omeprazole, for acid reflux - Simvastatin, for cholesterol - Terazosin Diagnostic Results: - A1c: 5.5 - Cholesterol: 162 mg/dL Social History: - The patient self-identifies as a namratar rory maki and reports significant anxiety regarding his high blood pressure readings. FOR[facility]LY [facility] Medical History LONI on CPAP Stage 3b chronic kidney disease (CKD) GERD (gastroesophageal reflux disease) BPH (benign prostatic hyperplasia) Hyperlipidemia Essential hypertension Family History Mother No problems noted. Father No problems noted. Social History Housing: House Patient Tobacco Use Status: Never used Tobacco e-Cigarette/Vaping Use: Never Used service: No Current occupational status: retired Cognitive needs: No Hearing needs: No Vision needs: No Questionnaire PHQ-9 Over the last 2 weeks, how often have you been bothered by any of the following problems? 1. Little interest or pleasure in doing things: not at all 2. Feeling down, depressed, or hopeless: not at all 3. Trouble falling or staying asleep, or sleeping too much: not at all 4. Feeling tired or having little energy: not at all 5. Poor appetite or overeating: not at all 6. Feeling bad about yourself - or that you are a failure or have let yourself or your family down: not at all 7. Trouble concentrating on things, such as reading the newspaper or watching television: not at all 8. Moving or speaking so slowly that other people could have noticed. Or the opposite - being so fidgety or restless that you have been moving around a lot more than usual: not at all 9. Thoughts that you would be better off or of hurting yourself in some way: not at all Total score: 0 Source: Developed by Drs. Forrest Garcia, Nakia Saleh, Abner Ledbetter and colleagues, with an educational miladis from [employer]. Thrive Questionnaire Date Thrive assessed: 02/26/25 I am a: Patient Within the past 12 months, did the food you bought not last and you didn't have the money to get more?: Never true Within the past 12 months, did you worry whether your food would run out before you got money to buy more?: Never true Do you have trouble paying for medicines?: No Do you have trouble getting transportation to medical appointments?: No Do you have trouble paying your heating and electricity bill?: No Do you have trouble taking care of your child, family member or friend?: No Do you have trouble with day-to-day activities such as bathing, preparing meals, shopping, managing finances, etc.?: No Are you currently unemployed and looking for a job?: No Are you interested in more education?: No THRIVE Score: 0 AUDIT C Alcohol Use Questionnaire (AUDIT-C) 1. How often do you have a drink containing alcohol?: Never 3. How often do you have six or more drinks on one occasion?: Never Total Score: 0 JENNIFER-7 AMB Questionnaire JENNIFER-7 Date JENNIFER - 7 assessed: 02/26/25 Feeling nervous, anxious, or on edge: 0 = Not at all Not being able to stop or control worryin = Not at all Worrying too much about different things: 0 = Not at all Trouble relaxin = Not at all Being so restless that it is hard to sit still: 0 = Not at all Becoming easily annoyed or irritable: 0 = Not at all Feeling afraid as if something awful might happen: 0 = Not at all Total JENNIFER-7 score (0-4 normal; 5-9 mild; 10-14 moderate; 15-21 severe): 0 Source: Developed by Drs. Forrest Garcia, Abner Zhou and colleagues, with an educational miladis from [employer]. Review of Systems Narrative - Cardiovascular: Denies chest pain or palpitations. - Neurological: Denies headache. - Eyes: Denies vision changes. - Genitourinary: Denies urinary symptoms. - Psychiatric: Reports being a worry wart and experiencing significant worry about his blood pressure. All systems reviewed & are unremarkable except as reviewed in HPI and above Physical exam (Primary Care) Vital Signs: Last Vital Signs Temp 97.1 F 02/26/25 09:59 Pulse 71 02/26/25 09:59 Resp 16 02/26/25 09:59 BP 170/80 H 02/26/25 09:59 Pulse Ox 98 02/26/25 09:59 Oxygen Delivery Method Room Air 02/26/25 09:59 BMI result Body Mass Index 26.7 Tobacco/Smoking Status: Tobacco use Status Tobacco use date assessed 02/26/25 02/26/25 10:02 Patient Tobacco Use Status Never used Tobacco 02/26/25 10:02 e-Cigarette/Vaping Use Never Used 02/26/25 10:02 PHQ-9: PHQ-9 Score PHQ-9: Total score 0 02/26/25 10:17 Thrive Assessment: Date of Thrive Assessment Date Thrive assessed 02/26/25 02/26/25 10:02 Narrative General: Alert and oriented, Well nourished, No acute distress. Eye: Pupils are equal, round and reactive to light, Intact accommodation, Extraocular movements are intact, Normal conjunctiva, Vision unchanged. HENT: Normocephalic, Atraumatic, Tympanic membranes are clear, Normal hearing, Oral mucosa is moist, No pharyngeal erythema, Ear canals patent. Respiratory: Lungs CTA bilaterally, No wheeze, Respirations are non-labored. Cardiovascular: Regular rate, Regular rhythm, S1 auscultated, S2 auscultated, No murmur, Good pulses equal in all extremities, Normal peripheral perfusion, No edema. Gastrointestinal: Soft, Non-tender, Non-distended, Normal bowel sounds, No organomegaly. Musculoskeletal: Normal range of motion, Normal strength, No tenderness, A little swelling, No deformity, Normal gait. Integumentary: Warm, Dry, [place], Intact. Neurologic: Alert, Oriented, Normal sensory, Normal motor function, No focal defects, Cranial Nerves II-XII are grossly intact, Normal deep tendon reflexes. Psychiatric: Cooperative, Appropriate mood & affect, Normal judgment. Coding Level of Care Code Est Pt Level 4 (17289) Complex EM visit Add On G2211 Diagnoses Essential hypertension I10 Other hyperlipidemia E78.49 Hyperlipidemia type: other hyperlipidemia Gastroesophageal reflux disease without esophagitis K21.9 Esophagitis presence: without esophagitis Stage 3b chronic kidney disease (CKD) N18.32 Benign prostatic hyperplasia without lower urinary tract symptoms N40.0 Lower urinary tract symptom presence: symptoms absent LONI on CPAP G47.33; Z99.89 Assessment & Plan Assessment & Plan (1) Essential hypertension: Comment: - The patient's hypertension is currently uncontrolled, with significant morning elevations and associated anxiety. - His in-office blood pressure was 176/80 mmHg. - The medication regimen will be adjusted to amlodipine 10 mg once daily in the morning and lisinopril 10 mg twice daily. - He was instructed to take both morning medications together and to monitor his blood pressure at home twice daily, one hour after taking his morning medication, after resting for 15 minutes. - A follow-up is scheduled in two weeks to reassess control and consider further adjustments. - The importance of a gradual reduction in blood pressure was emphasized. Code(s): I10 - Essential (primary) hypertension Category: Medical (2) Hyperlipidemia: Comment: - The patient's recent cholesterol was 162. - He will continue his current dose of simvastatin. Code(s): E78.5 - Hyperlipidemia, unspecified Category: Medical Qualifiers: Hyperlipidemia type: other hyperlipidemia Qualified Code(s): E78.49 - Other hyperlipidemia (3) GERD (gastroesophageal reflux disease): Comment: - The patient is managed on omeprazole and will continue this medication. Code(s): K21.9 - Gastro-esophageal reflux disease without esophagitis Category: Medical Qualifiers: Esophagitis presence: without esophagitis Qualified Code(s): K21.9 - Gastro-esophageal reflux disease without esophagitis (4) Stage 3b chronic kidney disease (CKD): Comment: - Renal function remains stable. Continue routine monitoring. Code(s): N18.32 - Chronic kidney disease, stage 3b Category: Medical (5) BPH (benign prostatic hyperplasia): Comment: - The patient is managed on finasteride and terazosin and denies any urinary symptoms. - He will continue his current medications. Code(s): N40.0 - Benign prostatic hyperplasia without lower urinary tract symptoms Category: Medical Qualifiers: Lower urinary tract symptom presence: symptoms absent Qualified Code(s): N40.0 - Benign prostatic hyperplasia without lower urinary tract symptoms (6) LONI on CPAP: Comment: - Continues the use of CPAP which is well-tolerated. Code(s): G47.33 - Obstructive sleep apnea (adult) (pediatric); Z99.89 - Dependence on other enabling machines and devices Category: Medical Plan: Health Maintenance: - Continue vitamin D supplements. - Management of chronic conditions including hypertension, hyperlipidemia, benign prostatic hyperplasia, and gastroesophageal reflux disease. Patient was informed and verbally consented to the use of an ambient scribe for clinic note documentation during this visit. Plan I discussed the patient's elevated and fluctuating blood pressure readings, acknowledging his anxiety about them. I explained that because his body has likely adapted to the higher pressures, we need to lower it gradually to avoid adverse effects, rather than using an aggressive, multi-drug approach immediately. The plan involves increasing his amlodipine dose to 10 mg daily and adjusting the lisinopril to 10 mg twice daily. I provided clear instructions on medication timing, emphasizing that both morning pills should be taken together upon waking. We also reviewed proper technique for home blood pressure monitoring, including resting for 15 minutes b efore checking. We confirmed his home blood pressure monitor is providing accurate readings comparable to the office equipment. We will have a follow-up visit in two weeks to reassess his response to the medication changes. Medications: New amlodipine 10 mg PO DAILY 30 tabs 0RF Discontinued amlodipine Discontinued Reason: Doctor's Order 5 mg PO DAILY 90 tabs 0RF Patient Instructions: - We are increasing your amlodipine dose to 10 mg. Please dispose of your old 5 mg tablets and start taking one 10 mg tablet every morning. - Take one lisinopril 10 mg tablet in the morning and one lisinopril 10 mg tablet at night. - Take your amlodipine and your morning lisinopril pill at the same time when you wake up. - Check your blood pressure two times a day. Do this about an hour after taking your morning medication. Before you check, sit down at a table, keep your legs uncrossed on the ground, and relax for 15 minutes. - Continue taking your other current medications as prescribed, including vitamin D, Ginette, finasteride, omeprazole, simvastatin, and terazosin. - We have lowered our goal for your blood pressure gradually, so you do not need to worry. - Please return for a follow-up appointment in two weeks to check on your progress.
--- OUTSIDE RECORDS SUMMARY | 2025-02-26 11:32 | XMS_ITS | Clinical Summary ---
Author Organization [facility] Address [address] [place], [place] [id number] Phone Care Team Providers Care Core Mounter Name Role Phone Michael Humphries MD Primary [...] [place] [employer] [employer]ACEMENT Care Teams Core Mounter Relationship Specialty Start Date End Date Michael Humphries MD [address] [place] [id number] PCP - General Internal Medicine 10/01/24 Additional Source Comments The information contained in this document represents components of the legal health record. It is not the complete legal health record.[facility]
== END 2025-02-26 10:33 | disposition home or self-care (01) ==
LOC: HO.HMCHD 10:02
PROVIDERS: PCP Student in an Organized Health Care Education/Training Program; Visit Provider Student in an Organized Health Care Education/Training Program
DX: I10 Essential (primary) hypertension (principal); E78.49 Other hyperlipidemia; K21.9 Gastro-esophageal reflux disease without esophagitis; N18.32 Chronic kidney disease, stage 3b; N40.0 Benign prostatic hyperplasia without lower urinary tract symptoms; G47.33 Obstructive sleep apnea (adult) (pediatric); Z99.89 Dependence on other enabling machines and devices

== ENCOUNTER → 2025-02-26 10:01 | Outpatient (BNVA) | payer MEDICARE, SELFPAY | PROVIDERS: PCP Student in an Organized Health Care Education/Training Program; Visit Provider Student in an Organized Health Care Education/Training Program | DX: I12.9 Hypertensive chronic kidney disease with stage 1 through stage 4 chronic kidney disease, or unspecified chronic kidney disease (principal); N18.32 Chronic kidney disease, stage 3b; E78.49 Other hyperlipidemia; K21.9 Gastro-esophageal reflux disease without esophagitis; N40.0 Benign prostatic hyperplasia without lower urinary tract symptoms; G47.33 Obstructive sleep apnea (adult) (pediatric); Z79.899 Other long term (current) drug therapy; Z99.89 Dependence on other enabling machines and devices; Z13.39 Encounter for screening examination for other mental health and behavioral disorders; Z13.30 Encounter for screening examination for mental health and behavioral disorders, unspecified | CPT/HCPCS: 96127; 99212 ==

== ENCOUNTER 2025-03-12 10:49 | Outpatient (AMB) | payer MEDICARE, SELFPAY ==
--- NOTE | 2025-03-12 10:51 | A.OFFPC_ITS ---
Vital Signs 03/12/25 10:54 Height 5 ft 4 in Weight 155 lb BMI 26.6 BP 168/58 H Blood Pressure Location Lt brachial Position Sitting Respiration 18 Pulse 79 Pulse Source Pulse Oximeter Temp 97.9 F Temp Source Temporal Artery Scan Pulse Oximetry (%) 98 Oxygen Delivery Method Room Air Intake Visit Reasons: 2 wk F/U BP Check Gypsum Roofer Required: No Accompanied by: Self / Same As Patient Allergies dicyclomine Allergy (Unknown, Verified 03/12/25 10:52) Hives doxycycline (DOXYCYCLINE) Allergy (Unknown, Verified 03/12/25 10:52) HIVES SEASONAL ALLERGIES Allergy (Unknown, Uncoded 11/04/24 14:35) RUNNY NOSE/SNEEZING Medication List - Last Reconciled 03/12/25 by Sunny Schwartz MD amlodipine 10 mg PO DAILY cholecalciferol (vitamin D3) 25 mcg PO DAILY fexofenadine (Ginette Allergy) 180 mg PO DAILY finasteride 5 mg PO DAILY lisinopril 10 mg PO BID 30 days omeprazole 20 mg PO ONCE simvastatin 10 mg PO DAILY 30 days terazosin 2 mg PO BEDTIME Tobacco use date assessed: 02/26/25 Dental Screening Dental Screen Date: 02/26/25 HPI HPI Comments History of Present Illness Details History of Present Illness The patient is an 84 year old male presenting with follow-up for management of uncontrolled hypertension. He monitors his blood pressure at home and reports morning readings are improving from the 170s-180s to the 150s-160s, with a recent reading of 170. His afternoon readings are lower, around 140, and his diastolic pressure has decreased from the mid-80s to the 60s and 70s. His current medications for hypertension include amlodipine 10 mg and lisinopril 10 mg in the morning, and another lisinopril 10 mg at night. He also takes omeprazole for acid reflux, simvastatin for cholesterol, and terazosin with finasteride for his prostate. He reports his acid reflux is well-controlled and only an issue if he eats late at night and lies down. He also states that his urination is fine. He mentions having a stress test years ago. Medical History: - Hypertension - Hyperlipidemia - Gastroesophageal reflux disease - Benign prostatic hyperplasia - History of cardiac stress test Medications: - Amlodipine 10 mg in the morning for hy pertension - Lisinopril 10 mg, one tablet in the mo rning and one tablet at night for hypertension - Omeprazole for acid reflux - Simvastatin for high cholesterol - Terazosin for benign prostatic hyperpl bruce - Finasteride for benign prostatic hyper plasia Diagnostic Results: - Home Blood Pressure Monitoring: Cristiane lara provides a log of readings. - Morning systolic readings are in the 1 50s-160s, previously 170s-180s. - Afternoon systolic readings are around 140. - Most recent reading noted was 170. - Diastolic readings are in the 60s and 70s, down from the mid-80s. Social History - Functional Status: The patient reports feeling alright but notes limitations due to age. - Diet: Reports that eating late at [facility] can trigger symptoms of acid reflux. [facility] Medical History LONI on CPAP Stage 3b chronic kidney disease (CKD) GERD (gastroesophageal reflux disease) BPH (benign prostatic hyperplasia) Hyperlipidemia Essential hypertension Family History Mother No problems noted. Father No problems noted. Social History Housing: House Patient Tobacco Use Status: Never used Tobacco e-Cigarette/Vaping Use: Never Used service: No Current occupational status: retired Cognitive needs: No Hearing needs: No Vision needs: No Questionnaire Thrive Questionnaire Date Thrive assessed: 02/26/25 JENNIFER-7 AMB Questionnaire JENNIFER-7 Date JENNIFER - 7 assessed: 02/26/25 Source: Developed by Drs. Forrest Garcia, Nakia Saleh, Abner Ledbetter and colleagues, with an educational miladis from [email or web address]. Review of Systems Narrative Review of Systems - General: Reports feeling alright. Denies any new complaints or concerns. - Cardiovascular: Reports elevated blood pressure readings at home. - Gastrointestinal: Denies significant symptoms of acid reflux, except when eating late at night. - Genitourinary: Denies urinary complaints, stating that urination is going pretty good. All systems reviewed & are unremarkable except as reviewed in HPI and above Physical exam (Primary Care) Vital Signs: Last Vital Signs Temp 97.9 F 03/12/25 10:54 Pulse 79 03/12/25 10:54 Resp 18 03/12/25 10:54 BP 168/58 H 03/12/25 10:54 Pulse Ox 98 03/12/25 10:54 Oxygen Delivery Method Room Air 03/12/25 10:54 BMI result Body Mass Index 26.6 Tobacco/Smoking Status: Tobacco use Status Tobacco use date assessed 02/26/25 03/12/25 10:56 Patient Tobacco Use Status Never used Tobacco 03/12/25 10:56 e-Cigarette/Vaping Use Never Used 03/12/25 10:56 Thrive Assessment: Date of Thrive Assessment Date Thrive assessed 02/26/25 03/12/25 10:56 Narrative Physical Exam General: Alert and oriented, Well nourished, No acute distress. Eye: Pupils are equal, round and reactive to light, Intact accommodation, Extraocular movements are intact, Normal conjunctiva, Vision unchanged. HENT: Normocephalic, Atraumatic, Tympanic membranes are clear, Normal hearing, Oral mucosa is moist, No pharyngeal erythema, Ear canals patent. Respiratory: Lungs CTA bilaterally, No wheeze, Respirations are non-labored. Cardiovascular: Regular rate, Regular rhythm, S1 auscultated, S2 auscultated, No murmur, Good pulses equal in all extremities, Normal peripheral perfusion, No edema. Gastrointestinal: Soft, Non-tender, Non-distended, Normal bowel sounds, No organomegaly. Musculoskeletal: Normal range of motion, Normal strength, No tenderness, No swelling, No deformity, Normal gait. Integumentary: Warm, Dry, [place], Intact. Neurologic: Alert, Oriented, Normal sensory, Normal motor function, No focal defects, Cranial Nerves II-XII are grossly intact, Normal deep tendon reflexes. Psychiatric: Cooperative, Appropriate mood & affect, Normal judgment. Coding Level of Care Code Est Pt Level 4 (59897) Complex EM visit Add On G2211 Diagnoses Essential hypertension I10 Gastroesophageal reflux disease without esophagitis K21.9 Esophagitis presence: without esophagitis Other hyperlipidemia E78.49 Hyperlipidemia type: other hyperlipidemia Benign prostatic hyperplasia without lower urinary tract symptoms N40.0 Lower urinary tract symptom presence: symptoms absent Stage 3b chronic kidney disease (CKD) N18.32 LONI on CPAP G47.33; Z99.89 Assessment & Plan Assessment & Plan (1) Essential hypertension: Comment: - The patient's blood pressure remains elevated, particularly in the mornings, with readings in the 160s, despite being on amlodipine 10 mg and lisinopril 20 mg total daily. - The goal is to bring his systolic pressure under 140 mmHg to mitigate risks such as stroke and heart attack. - The plan is to increase the total daily dose of lisinopril to 30 mg. - He will take lisinopril 10 mg in the morning and 20 mg at night. - New prescriptions for 10 mg and 20 mg tablets will be sent, and he is to discard his current supply to avoid confusion. - A follow-up is scheduled in 4 weeks via telephone. Code(s): I10 - Essential (primary) hypertension Category: Medical (2) GERD (gastroesophageal reflux disease): Comment: - The patient's GERD is stable and well-controlled with omeprazole. - Symptoms are only provoked by dietary triggers, such as eating late. - He will continue his current medication and lifestyle modifications. Code(s): K21.9 - Gastro-esophageal reflux disease without esophagitis Category: Medical Qualifiers: Esophagitis presence: without esophagitis Qualified Code(s): K21.9 - Gastro-esophageal reflux disease without esophagitis (3) Hyperlipidemia: Comment: - The patient's condition is managed with simvastatin. - No acute changes were discussed. - He will continue his current medication. Code(s): E78.5 - Hyperlipidemia, unspecified Category: Medical Qualifiers: Hyperlipidemia type: other hyperlipidemia Qualified Code(s): E78.49 - Other hyperlipidemia (4) BPH (benign prostatic hyperplasia): Comment: - The patient's condition is well-managed on terazosin and finasteride. - He denies any urinary complaints. - He will continue his current medications. Code(s): N40.0 - Benign prostatic hyperplasia without lower urinary tract symptoms Category: Medical Qualifiers: Lower urinary tract symptom presence: symptoms absent Qualified Code(s): N40.0 - Benign prostatic hyperplasia without lower urinary tract symptoms (5) Stage 3b chronic kidney disease (CKD): Comment: - Renal function remains stable. Continue routine monitoring. Code(s): N18.32 - Chronic kidney disease, stage 3b Category: Medical (6) LONI on CPAP: Comment: - Continues the use of CPAP which is well-tolerated. Code(s): G47.33 - Obstructive sleep apnea (adult) (pediatric); Z99.89 - Dependence on ot her enabling machines and devices Category: Medical Plan: Health Maintenance: - The patient actively monitors his blood pressure at home and maintains a log of his readings. - The patient was educated on the blood pressure goal of keeping the systolic reading under 140 mmHg. - The risks of uncontrolled hypertension, including stroke and heart attack, were discussed. Patient was informed and verbally consented to the use of an ambient scribe for clinic note documentation during this visit. Plan I reviewed the patient's home blood pressure log, noting that while there is some improvement, his morning readings in the 160s are still unsafely high. I explained that these high pressures pose a significant risk for stroke and heart attack, and our goal is to bring his systolic pressure under 140. I proposed increasing his lisinopril dose to 30 mg total per day. We discussed dosing options, and the patient preferred to split the dose, taking 10 mg in the morning and 20 mg at night, rather than all 30 mg at once. I explained that I would send two new prescriptions (one for 10 mg and one for 20 mg tablets) and that he must stop taking his current 10 mg tablets to avoid accidental overdose. We agreed to a follow-up visit via telephone in four weeks to check on his progress. Medications: New lisinopril To be taken at night 20 mg PO QPM 30 tabs 0RF 30 days Changed From lisinopril 10 mg PO BID 30 days 60 tabs 0RF To lisinopril To be taken in the morning 10 mg PO ONCE 30 tabs 0RF 30 days Patient Instructions: - Your blood pressure is too high. Our goal is to get the top number below 140. - We are changing your lisinopril dose. You will now take one 10 mg tablet in the morning and one 20 mg tablet at night. - Two new prescriptions, one for 10 mg and one for 20 mg tablets, have been sent to your pharmacy. Please throw away your old 10 mg lisinopril pills to avoid taking too much. - Continue taking all your other medications as you have been. - To help with acid reflux, avoid eating too late at night before you lie down. - Keep checking your blood pressure at home. - We will have a follow-up appointment over the phone in 4 weeks.
[2025-03-12 10:54] VITALS: BP 168/58; PULSE 79; RESP 18; TEMP 36.6; O2SAT 98; BMI 26.6
--- OUTSIDE RECORDS SUMMARY | 2025-03-12 21:21 | XMS_ITS | Clinical Summary ---
Author Organization [facility] Address [address] [place], [place] [phone] Phone Care Team Providers Care Notching Machine Operator Name Role Phone Michael Humphries MD Primary [...] [place] [employer] Care Teams Notching Machine Operator Relationship Specialty Start Date End Date Michael Humphries MD [address] [place] [id number] PCP - General Internal Medicine 10/01/24 Additional Source Comments The information contained in this document represents components of the legal health record. It is not the complete legal health record.[facility]
== END 2025-03-12 11:08 | disposition home or self-care (01) ==
LOC: HO.HMCHD 10:50
PROVIDERS: PCP Student in an Organized Health Care Education/Training Program; Visit Provider Student in an Organized Health Care Education/Training Program
DX: I10 Essential (primary) hypertension (principal); K21.9 Gastro-esophageal reflux disease without esophagitis; E78.49 Other hyperlipidemia; N40.0 Benign prostatic hyperplasia without lower urinary tract symptoms; N18.32 Chronic kidney disease, stage 3b; G47.33 Obstructive sleep apnea (adult) (pediatric); Z99.89 Dependence on other enabling machines and devices

== ENCOUNTER → 2025-03-12 10:49 | Outpatient (BNVA) | payer MEDICARE, SELFPAY | PROVIDERS: PCP Student in an Organized Health Care Education/Training Program; Visit Provider Student in an Organized Health Care Education/Training Program | DX: I10 Essential (primary) hypertension (principal); K21.9 Gastro-esophageal reflux disease without esophagitis; E78.49 Other hyperlipidemia; N40.0 Benign prostatic hyperplasia without lower urinary tract symptoms; N18.32 Chronic kidney disease, stage 3b; G47.33 Obstructive sleep apnea (adult) (pediatric); Z99.89 Dependence on other enabling machines and devices; Z79.899 Other long term (current) drug therapy | CPT/HCPCS: 99212 ==

== ENCOUNTER 2025-04-09 10:39 | Outpatient (AMB) | payer MEDICARE, SELFPAY ==
--- NOTE | 2025-04-09 10:43 | MHC.PC.OV ---
Intake Visit Reasons: 4 wk f/u BP Telehealth Allergies dicyclomine Allergy (Unknown, Verified 03/12/25 10:52) Hives doxycycline (DOXYCYCLINE) Allergy (Unknown, Verified 03/12/25 10:52) HIVES SEASONAL ALLERGIES Allergy (Unknown, Uncoded 11/04/24 14:35) RUNNY NOSE/SNEEZING Medication List - Last Reconciled 04/09/25 by Sunny Schwartz MD amlodipine 10 mg PO DAILY cholecalciferol (vitamin D3) 25 mcg PO DAILY fexofenadine (Ginette Allergy) 180 mg PO DAILY finasteride 5 mg PO DAILY lisinopril 20 mg PO BID 90 days omeprazole 20 mg PO ONCE simvastatin 10 mg PO DAILY 30 days terazosin 2 mg PO BEDTIME Tobacco use date assessed: 02/26/25 Fall risk assessment: No Falls in past year Dental Screening Dental Screen Date: 02/26/25 Did you have a dental visit in the last 12 months?: Yes Did you have a dental problem in the last 6 months where you did not have access to dental care?: No HPI HPI Comments History of Present Illness Details History of Present Illness The patient is an 84 year old male presenting for management of elevated blood pressure. He reports recent home blood pressure readings of 144/69 mmHg in the morning before medication and 160/68 mmHg at 10:30 AM. He notes his morning averages are in the 150s systolic over low 60s diastolic, and afternoon readings are in the mid-140s systolic. Due to an insurance issue preventing him from filling a new prescription, the patient has been taking two 10 mg lisinopril tablets in the morning and one 20 mg lisinopril tablet at night, along with amlodipine 5 mg. He is now running out of his 20 mg lisinopril tablets. The patient reports experiencing a sensation of heaviness over his eyes, similar to a sinus headache, and feeling woozyish about an hour after taking his morning medication. These symptoms typically persist through the morning and resolve by early afternoon. Medical History: - Hypertension Medications: - Amlodipine 5 mg for hypertension. - Lisinopril 10 mg, two tablets in the morning, for hypertension. - Lisinopril 20 mg, one tablet at night, for hypertension. Results - Home Blood Pressure Monitoring: - Morning (pre-medication): 144/69 mmHg. - 10:30 AM: 160/68 mmHg. - Average mornins systolic over low 60s diastolic. - Average afternoon: Mid-140s systolic. [facility] Medical History LONI on CPAP Stage 3b chronic kidney disease (CKD) GERD (gastroesophageal reflux disease) BPH (benign prostatic hyperplasia) Hyperlipidemia Essential hypertension Family History Mother No problems noted. Father No problems noted. Social History Housing: House Patient Tobacco Use Status: Never used Tobacco e-Cigarette/Vaping Use: Never Used service: No Current occupational status: retired Cognitive needs: No Hearing needs: No Vision needs: No Questionnaire Thrive Questionnaire Date Thrive assessed: 02/26/25 JENNIFER-7 AMB Questionnaire JENNIFER-7 Date JENNIFER - 7 assessed: 02/26/25 Source: Developed by Drs. Forrest Garcia, Nakia Saleh, Abner Ledbetter and colleagues, with an educational miladis from [employer]. Review of Systems Narrative Review of Systems - Neurological: Reports a sensation of heaviness over the eyes, similar to a sinus headache, and feeling woozyish after taking morning medication. Physical exam (Primary Care) Care Plan Goal for BP management: Home pressures elevated to 140's Next steps: Increase amlodipine 5 to 10 Tobacco/Smoking Status: Tobacco use Status Tobacco use date assessed 02/26/25 04/09/25 10:44 Patient Tobacco Use Status Never used Tobacco 04/09/25 10:44 e-Cigarette/Vaping Use Never Used 04/09/25 10:44 Thrive Assessment: Date of Thrive Assessment Date Thrive assessed 02/26/25 04/09/25 10:44 Telehealth Telehealth Telehealth Platform: Telephone Location of provider rendering services: practice address Location of patient: address on file Patient Identification confirmed using: Name, : Yes Telehealth method: voice only Patient verbally consented to treatment: Yes Patient verbally consented to billing insurance company: Yes Patient informed of any privacy concerns related to visit: Yes Minutes spent on Phone/Video with Pt.: 8 Coding Level of Care Code Est Pt Level 4 (28017) Add On Problem Visit Only Diagnoses Essential hypertension I10 Other hyperlipidemia E78.49 Hyperlipidemia type: other hyperlipidemia Gastroesophageal reflux disease without esophagitis K21.9 Esophagitis presence: without esophagitis Benign prostatic hyperplasia without lower urinary tract symptoms N40.0 Lower urinary tract symptom presence: symptoms absent LONI on CPAP G47.33; Z99.89 Assessment & Plan Assessment & Plan (1) Essential hypertension: Comment: - The patient's amlodipine will be increased from 5 mg to 10 mg daily. - He will continue lisinopril 20 mg in the morning and 20 mg at night. - Prescriptions for a 90-day supply of lisinopril 20 mg and a 30-day supply of amlodipine 10 mg will be sent to the pharmacy. - The patient has been counseled on proper blood pressure measurement technique, including resting for 5-10 minutes prior to checking. - The patient was informed that his symptoms of wooziness and head heaviness are likely his body acclimatizing to normal blood pressure levels. - A telephonic follow-up is scheduled for 4 weeks on May 07 at 9:30 AM to reassess his blood pressure control. Code(s): I10 - Essential (primary) hypertension Category: Medical (2) Hyperlipidemia: Comment: - The patient's condition is managed with simvastatin. - No acute changes were discussed. - He will continue his current medication. Code(s): E78.5 - Hyperlipidemia, unspecified Category: Medical Qualifiers: Hyperlipidemia type: other hyperlipidemia Qualified Code(s): E78.49 - Other hyperlipidemia (3) GERD (gastroesophageal reflux disease): Comment: - The patient's GERD is stable and well-controlled with omeprazole. - Symptoms are only provoked by dietary triggers, such as eating late. - He will continue his current medication and lifestyle modifications. Code(s): K21.9 - Gastro-esophageal reflux disease without esophagitis Category: Medical Qualifiers: Esophagitis presence: without esophagitis Qualified Code(s): K21.9 - Gastro-esophageal reflux disease without esophagitis (4) BPH (benign prostatic hyperplasia): Comment: - The patient's condition is well-managed on terazosin and finasteride. - He denies any urinary complaints. - He will continue his current medications. Code(s): N40.0 - Benign prostatic hyperplasia without lower urinary tract symptoms Category: Medical Qualifiers: Lower urinary tract symptom presence: symptoms absent Qualified Code(s): N40.0 - Benign prostatic hyperplasia without lower urinary tract symptoms (5) LONI on CPAP: Comment: - Continues the use of CPAP which is well-tolerated. Code(s): G47.33 - Obstructive sleep apnea (adult) (pediatric); Z99.89 - Dependence on other enabling machines and devices Category: Medical Plan I discussed the patient's elevated home blood pressure readings and the need to adjust his medication regimen for better control. I advised increasing his amlodipine from 5 mg to 10 mg daily and ensuring he takes lisinopril 20 mg twice daily, for which I will send new prescriptions. I addressed his symptoms of wooziness and head heaviness, explaining this is likely his body adjusting to a more normal blood pressure range. I instructed him on the proper technique for taking his blood pressure, including resting for 5-10 minutes prior. We scheduled a phone follow-up in 4 weeks on May 07 at 9:30 AM, and I advised him to call sooner if there are any significant changes. Medications: New amlodipine 10 mg PO DAILY 30 tabs 0RF Changed From lisinopril To be taken at night 20 mg PO BID 30 days 60 tabs 0RF To lisinopril To be taken at night 20 mg PO BID 180 tabs 3RF 90 days Discontinued amlodipine Discontinued Reason: Doctor's Order 5 mg PO DAILY 30 tabs 0RF Patient Instructions: - We are increasing your amlodipine medication to 10 mg. Please take one tablet every morning. - Continue taking your lisinopril medication, one 20 mg tablet in the morning and one 20 mg tablet at night. - I will send a new 90-day prescription for lisinopril 20 mg and a 30-day prescription for amlodipine 10 mg to your pharmacy. - When you check your blood pressure, please make sure to sit down and rest quietly for about 10 minutes before taking a reading. - Continue to check your blood pressure two times a day. - The feeling of wooziness or heaviness in your head is likely your body getting used to healthier blood pressure numbers. - We will have a follow-up phone call in 4 weeks, scheduled for May 07 at 9:30 AM. - If anything changes quickly or gets worse, please call the office.
--- OUTSIDE RECORDS SUMMARY | 2025-04-09 13:27 | XMS_ITS | Clinical Summary ---
Author Organization [facility] Address [address] [place], [place] [phone] Phone Care Team Providers Care Security Systems Specialist Name Role Phone Michael Humphries MD Primary [...] [place] [employer] Care Teams Security Systems Specialist Relationship Specialty Start Date End Date Michael Humphries MD [address] [place] [id number] PCP - General Internal Medicine 10/01/24 Additional Source Comments The information contained in this document represents components of the legal health record. It is not the complete legal health record.[facility]
== END 2025-04-09 10:50 | disposition home or self-care (01) ==
LOC: HO.HMCHD 10:39
PROVIDERS: PCP Student in an Organized Health Care Education/Training Program; Visit Provider Student in an Organized Health Care Education/Training Program
DX: I10 Essential (primary) hypertension (principal); E78.49 Other hyperlipidemia; K21.9 Gastro-esophageal reflux disease without esophagitis; N40.0 Benign prostatic hyperplasia without lower urinary tract symptoms; G47.33 Obstructive sleep apnea (adult) (pediatric); Z99.89 Dependence on other enabling machines and devices

== ENCOUNTER → 2025-04-09 10:39 | Outpatient (BNVA) | payer MEDICARE, SELFPAY | PROVIDERS: PCP Student in an Organized Health Care Education/Training Program; Visit Provider Student in an Organized Health Care Education/Training Program | DX: I10 Essential (primary) hypertension (principal); E78.49 Other hyperlipidemia; K21.9 Gastro-esophageal reflux disease without esophagitis; N40.0 Benign prostatic hyperplasia without lower urinary tract symptoms; G47.33 Obstructive sleep apnea (adult) (pediatric); Z99.89 Dependence on other enabling machines and devices | CPT/HCPCS: 99212 ==